=== PATIENT | male | born 1950 | race Caucasian/White ===

== ENCOUNTER 2017-08-02 14:06 | Inpatient (IN) | payer MEDICARE, MEDICAID ==
[~2017-08-02] VITALS: Ht 172.7 cm; Wt 72.6 kg
[~2017-08-02 14:06] MED LIST: ACETAMINOPHEN325 M1 ORAL; ASPIRIN81 MG ORAL; ATORVASTATIN CA40 MG ORAL; CLONIDINE0.1 MG ORAL; CYANOCOBAL1000 MCG/M IM; FERGON240 MG ORAL; GLUCOPHAGE500 MG ORAL; JANUVIA100 MG ORAL; LEVEMIR FL100 UNIT/1 SUBQ; LISINOPRIL10 MG ORAL; METOPROLOL TART50 MG ORAL; NKM; NOVOLOG100 UNITS1 SUBQ; NUEDEXTA 20-101 EAC1 PO; PROTONIX40 MG ORAL; RISPERDAL0.25 MG ORAL; ROZEREM8 MG ORAL; STARLIX120 MG ORAL
[2017-08-02 14:24] VITALS: BP 178/83
[2017-08-02 15:14] VITALS: BP 142/97
[2017-08-02] MEDS ORDERED: ASPIRIN EC81 MG ORAL (15:15)
[2017-08-02 16:02] LABS: BASOPHILS % (AUTO) 1.7 % (0.0-2.0); EOSINOPHILS % (AUTO) 2.6 % (0.0-3.0); HEMATOCRIT 30.2 % (42.0-52.0); HEMOGLOBIN 9.8 G/DL (14.2-18.0); LYMPHOCYTES % (AUTO) 20.4 % (20.0-45.0); MEAN CORPUSCULAR VOLUME 88 FL (80-99); MONOCYTES % (AUTO) 8.2 % (1.0-10.0); NEUTROPHILS % (AUTO) 67.2 % (45.0-75.0); PLATELET COUNT 562 K/UL (150-450); RED BLOOD COUNT 3.43 M/UL (4.70-6.10); RED CELL DISTRIBUTION WIDTH 12.2 % (11.6-14.8); WHITE BLOOD COUNT 15.1 K/UL (4.8-10.8)
[2017-08-02 16:25] LABS: ANION GAP 9 mmol/L (5-15); BLOOD UREA NITROGEN 17 mg/dL (7-18); CALCIUM 7.9 MG/DL (8.5-10.1); CARBON DIOXIDE 25 MMOL/L (21-32); CHLORIDE 107 MMOL/L (98-107); CREATININE 1.1 MG/DL (0.55-1.30); POTASSIUM 3.2 MMOL/L (3.5-5.1); SODIUM 141 MMOL/L (136-145)
[2017-08-02 16:38] LABS: ALANINE AMINOTRANSFERASE 11 U/L (12-78); ALBUMIN 1.8 G/DL (3.4-5.0); ALBUMIN/GLOBULIN RATIO 0.5 (1.0-2.7); ALKALINE PHOSPHATASE 75 U/L (46-116); ASPARTATE AMINO TRANSFERASE 8 U/L (15-37); BILIRUBIN,TOTAL 0.1 MG/DL (0.2-1.0); CKMB 0.8 NG/ML (0.0-3.6); CREATINE KINASE 90 U/L (26-308)
[2017-08-02] MEDS ORDERED: NS 1000ml 2,200 ML IVLG ONE (17:00)
--- NOTE | 2017-08-02 17:18 | Emergency Room Report ---
History of Present Illness General Chief Complaint: Generalized Weakness Source: Patient, Medical Record Present Illness HPI 67-year-old male presents ED for evaluation. Patient from longterm for evaluation. Nursing staff states that patient has been more confused with poor appetite for the last several days. Upon arrival patient states he feels okay. States he is not sure why he is here. States he feels fine. Denies any headaches or weakness. Denies chest pain or shortness of breath. Denies fevers chills. Son on phone states that patient has history of schizophrenia and often denies symptoms. son states the patient appeared more confused over the phone. Patient recent lab work done which showed elevated white cell count. Denies dysuria or hematuria. However aggravating relieving factors. Denies any other associated symptoms Allergies: Coded Allergies: No Known Allergies (Unverified , 08/15/15) Patient History Past Medical History: HTN, GERD, psych hx Past Surgical History: none Pertinent Family History: none Social History: Denies: smoking, alcohol use, drug use Immunizations: UTD Reviewed Nursing Documentation: PMH: Agreed, PSxH: Agreed Nursing Documentation-PMH Past Medical History: No History, Except For Hx Cardiac Problems: No - Hyperlipidemia, Anemia, Vit B12 deficiency anemia Hx Hypertension: Yes Hx Pacemaker: No Hx Asthma: No Hx COPD: No Hx Diabetes: Yes Hx Cancer: No - Pancreatic CA Hx Gastrointestinal Problems: Yes - GERD Hx Dialysis: No History Of Psychiatric Problem: Yes - Bipolar disorder, Schizoaffective disorder, major depression, anxiety Hx Neurological Problems: Yes - Difficulty in walking, generalized weakness Hx Cerebrovascular Accident: No Hx Seizures: No Review of Systems All Other Systems: negative except mentioned in HPI Physical Exam Vital Signs Date Time Temp Pulse Resp B/P (MAP) Pulse Ox O2 Delivery O2 Flow Rate FiO2 08/02/17 14:08 97.5 94 18 163/82 99 Room Air Sp02 EP Interpretation: reviewed, normal General Appearance: no apparent distress, alert, GCS 15, non-toxic Head: normocephalic Eyes: bilateral eye normal inspection, bilateral eye PERRL ENT: normal ENT inspection Neck: normal inspection Respiratory: chest non-tender, lungs clear, normal breath sounds, speaking full sentences Cardiovascular #1: regular rate, rhythm, no edema Gastrointestinal: normal bowel sounds, non tender, soft, non-distended, no guarding, no rebound Rectal: deferred Genitourinary: no CVA tenderness Musculoskeletal: normal inspection Neurologic: alert, responsive Psychiatric: anxious Skin: normal inspection Lymphatic: normal inspection Medical Decision Making Diagnostic Impression: Primary Impression: Episode of generalized weakness Additional Impressions: UTI (urinary tract infection) Qualified Codes: N39.0 - Urinary tract infection, site not specified Sepsis Qualified Codes: A41.9 - Sepsis, unspecified organism ER Course Hospital Course 67 yo M presents to ED for evaluation of weakness, poor appetite, confusion Differential diagnoses include: Pneumonia, UTI, sepsis, dehydration, FL/ unstable angina Clinical course Patient placed on stretcher. 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 After initial history and physical, I ordered labs, IV fluids, EKG, chest x-ray, blood cultures, UA. Patient initially refused all workup stating that he is fine and wants to be discharged. I spoke to PMD Dr. Castrejon; states that patient did have reasonable lab work that showed significant leukocytosis. Patient does have psychosis. I spoke to son. Present patient requires workup and he spoke to the patient on the phone. patient agreed to have workup Labs - electrolytes ok, noted leukocytosis, hb/hct stable, lactate 2.6, UA + bacteria, influenza negative CXR - no acute process Abx given. given 30cc/kg fluid bolus. Case discussed with Dr Castrejon and they agreed to admit patient to their service for further care and support I feel this is a highly complex case requiring extensive working including EKG/ Rhythm strip, Xray/CT/US, Blood/urine lab work, repeat exams while in ED, and administration of strong opiates/narcotics for pain control, admission to hospital or close patient follow up. Diagnosis - UTI, generalized weakness, sepsis Patient admitted to floor in serious condition Labs Test 08/02/17 14:47 08/02/17 15:41 08/02/17 16:57 08/02/17 17:11 Lactic Acid Level 2.60 mmol/L (0.66-2.22) 2.30 mmol/L (0.66-2.22) White Blood Count 15.1 K/UL (4.8-10.8) Red Blood Count 3.43 M/UL (4.70-6.10) Hemoglobin 9.8 G/DL (14.2-18.0) Hematocrit 30.2 % (42.0-52.0) Mean Corpuscular Volume 88 FL (80-99) Mean Corpuscular Hemoglobin 28.7 PG (27.0-31.0) Mean Corpuscular Hemoglobin Concent 32.6 G/DL (32.0-36.0) Red Cell Distribution Width 12.2 % (11.6-14.8) Platelet Count 562 K/UL (150-450) Mean Platelet Volume 6.7 FL (6.5-10.1) Neutrophils (%) (Auto) 67.2 % (45.0-75.0) Lymphocytes (%) (Auto) 20.4 % (20.0-45.0) Monocytes (%) (Auto) 8.2 % (1.0-10.0) Eosinophils (%) (Auto) 2.6 % (0.0-3.0) Basophils (%) (Auto) 1.7 % (0.0-2.0) Sodium Level 141 MMOL/L (136-145) Potassium Level 3.2 MMOL/L (3.5-5.1) Chloride Level 107 MMOL/L (98-107) Carbon Dioxide Level 25 MMOL/L (21-32) Anion Gap 9 mmol/L (5-15) Blood Urea Nitrogen 17 mg/dL (7-18) Creatinine 1.1 MG/DL (0.55-1.30) Estimat Glomerular Filtration Rate > 60 mL/min (>60) Glucose Level 182 MG/DL (74-106) Calcium Level 7.9 MG/DL (8.5-10.1) Total Bilirubin 0.1 MG/DL (0.2-1.0) Aspartate Amino Transf (AST/SGOT) 8 U/L (15-37) Alanine Aminotransferase (ALT/SGPT) 11 U/L (12-78) Alkaline Phosphatase 75 U/L (46-116) Total Creatine Kinase 90 U/L (26-308) Creatine Kinase MB 0.8 NG/ML (0.0-3.6) Creatine Kinase MB Relative Index 0.8 Troponin I 0.016 ng/mL (0.000-0.056) Pro-B-Type Natriuretic Peptide 407 pg/mL (0-125) Total Protein 5.4 G/DL (6.4-8.2) Albumin 1.8 G/DL (3.4-5.0) Globulin 3.6 g/dL Albumin/Globulin Ratio 0.5 (1.0-2.7) Urine Color Yellow Urine Appearance Slightly cloudy Urine pH 6 (4.5-8.0) Urine Specific [place] 1.015 (1.005-1.035) Urine Protein 4+ (NEGATIVE) Urine Glucose (UA) 3+ (NEGATIVE) Urine Ketones 1+ (NEGATIVE) Urine Occult Blood 1+ (NEGATIVE) Urine Nitrite Negative (NEGATIVE) Urine Bilirubin Negative (NEGATIVE) Urine Urobilinogen Normal MG/DL (0.0-1.0) Urine Leukocyte Esterase Negative (NEGATIVE) Urine RBC 5-10 /HPF (0 - 0) Urine WBC 2-4 /HPF (0 - 0) Urine Squamous Epithelial Cells None /LPF (NONE/OCC) Urine Amorphous Sediment Few /LPF (NONE) Urine Bacteria Many /HPF (NONE) Chest X-Ray Diagnostic Results Chest X-Ray Diagnostic Results : Chest X-Ray Ordered: Yes # of Views/Limited/Complete: 1 View Indication: Other - weakness EP Interpretation: Yes Interpretation: no consolidation, no effusion, no pneumothorax, no acute cardiopulmonary disease Impression: No acute disease Electronically Signed by: Electronically signed by Miky Multani MD Last Vital Signs Date Time Temp Pulse Resp B/P (MAP) Pulse Ox O2 Delivery O2 Flow Rate FiO2 08/02/17 15:14 77 8 142/97 99 Room Air 08/02/17 14:24 97.6 Status: improved Disposition: ADMITTED INPATIENT Condition: Serious Referrals: CARRIE CASTREJON (PCP) MIKY MULTANI M.D. Aug 02, 2017 17:18
[2017-08-02 17:26] LABS: APPEARANCE,URINE SLIGHTLY CLOUDY; BILIRUBIN, URINE NEGATIVE (NEGATIVE); GLUCOSE, URINE (UA) 3+ (NEGATIVE); KETONES,URINE 1+ (NEGATIVE); LEUKOCYTE ESTERASE ,URINE NEGATIVE (NEGATIVE); NITRITE,URINE NEGATIVE (NEGATIVE); PH,URINE 6 (4.5-8.0); PROTEIN,URINE 4+ (NEGATIVE); UROBILINOGEN,URINE NORMAL MG/DL (0.0-1.0)
[2017-08-02 17:27] LABS: COLOR,URINE YELLOW
[2017-08-02] MEDS ORDERED: cefTRIAXone 1 GM in NS 55 ML IVPB ONE (18:00)
[2017-08-02 18:36] VITALS: BP 153/76
[2017-08-02] MEDS ORDERED: METFORMIN HCL1000 M1 ORAL (19:50)
[2017-08-02] MEDS ORDERED: METFORMIN HCL500 M1 ORAL (19:50)
[2017-08-02] MEDS ORDERED: COLACE100 MG ORAL (19:50)
[2017-08-02] MEDS ORDERED: LEXAPRO5 MG ORAL (19:50)
[2017-08-02] MEDS ORDERED: DEPAKOTE250 MG PO (19:50)
[2017-08-02] MEDS ORDERED: MAGNESIUM400 M1 PO (19:55)
[2017-08-02] MEDS ORDERED: RISPERDAL0.25 MG ORAL (19:55)
[2017-08-02] MEDS ORDERED: VITAMIN B122500 MCG PO (19:55)
[2017-08-02 21:00] VITALS: BP 160/90
[2017-08-02] MEDS ORDERED: Miralax 17gm pkt ORAL PRN (23:30)
[2017-08-02] MEDS ORDERED: Norco 5mg/325mg tab ORAL PRN (23:30)
[2017-08-03] VITALS: BP 164/90
[2017-08-03] MEDS ORDERED: Bismuth Subsalicylate 30ml ORAL PRN (00:15)
[2017-08-03] MEDS ORDERED: Loperamide 2mg cap ORAL PRN (00:15)
[2017-08-03] MEDS ORDERED: traMADol 50mg tab ORAL PRN (00:15)
[2017-08-03] MEDS ORDERED: Norco 5mg/325mg tab ORAL PRN (05:30)
[2017-08-03] MEDS ORDERED: NovoLOG Insulin Flexpen SUBQ SCH (06:30)
[2017-08-03] MEDS: NovoLOG Insulin Flexpen SUBQ SCH ×3 (06:30→16:57)
[2017-08-03] MEDS ORDERED: metFORMIN 500mg tab ORAL SCH (06:30)
[2017-08-03 07:57] LABS: EOSINOPHILS % (AUTO) 3.1 % (0.0-3.0); HEMATOCRIT 34.4 % (42.0-52.0); HEMOGLOBIN 11.1 G/DL (14.2-18.0); MEAN CORPUSCULAR VOLUME 88 FL (80-99); MONOCYTES % (AUTO) 8.2 % (1.0-10.0); NEUTROPHILS % (AUTO) 61.7 % (45.0-75.0); PLATELET COUNT 626 K/UL (150-450); RED BLOOD COUNT 3.91 M/UL (4.70-6.10); WHITE BLOOD COUNT 14.3 K/UL (4.8-10.8)
[2017-08-03] MEDS: Docusate 100mg cap ORAL SCH ×4 (08:13→18:00)
[2017-08-03] MEDS: Metoprolol Tartrate 50mg tab ORAL SCH ×2 (08:13→20:28)
[2017-08-03] MEDS: Lisinopril 10mg tab ORAL SCH ×2 (08:13→16:54)
[2017-08-03] MEDS: Magnesium Oxide 400mg tab ORAL SCH ×3 (08:13→16:55)
[2017-08-03] MEDS: Aspirin Baby 81mg ORAL SCH (08:13)
[2017-08-03 08:20] LABS: ALANINE AMINOTRANSFERASE 10 U/L (12-78); ALBUMIN 2.1 G/DL (3.4-5.0); ALBUMIN/GLOBULIN RATIO 0.5 (1.0-2.7); ALKALINE PHOSPHATASE 82 U/L (46-116); ANION GAP 7 mmol/L (5-15); ASPARTATE AMINO TRANSFERASE 11 U/L (15-37); BILIRUBIN,TOTAL 0.3 MG/DL (0.2-1.0); BLOOD UREA NITROGEN 17 mg/dL (7-18); CALCIUM 9.1 MG/DL (8.5-10.1); CARBON DIOXIDE 27 MMOL/L (21-32); CHLORIDE 103 MMOL/L (98-107); CREATININE 1.2 MG/DL (0.55-1.30); POTASSIUM 3.7 MMOL/L (3.5-5.1); SODIUM 136 MMOL/L (136-145)
[2017-08-03 08:38] VITALS: BP 169/79
--- NOTE | 2017-08-03 08:52 | Diagnostic Imaging Report ---
. Indication: Altered mental status Technique: Portable frontal view of the chest Comparison: 08/16/2015 Findings: Heart size and mediastinal contours are stable. There is no definite focal airspace consolidation, pleural effusion or pneumothorax. There is an 8 mm rounded density with central lucency projecting over the right lung base. No acute osseous abnormality IMPRESSION: No radiographic evidence of acute cardiopulmonary disease. 8 mm rounded density with central lucency projecting over the right lung base. This was not seen on the previous exam. This may resent a partially calcified nodule or potentially external to the patient. Follow-up exam recommended to assess for stability of this finding. Alternatively, noncontrast CT of the chest can be obtained for further evaluation. Findings and imaging follow-up recommendations discussed with the patient's treating nurse on 4E at 8:45 AM on 08/03/2017
[2017-08-03] MEDS ORDERED: Levemir Flexpen SUBQ SCH (09:00)
[2017-08-03] MEDS: Nuedexta Capsule 20/10mg ORAL SCH ×2 (10:28→20:29)
[2017-08-03] MEDS: Escitalopram Oxalate 5mg tab ORAL SCH (10:28)
[2017-08-03] MEDS: Levemir Flexpen SUBQ SCH ×2 (10:33→20:41)
[2017-08-03] MEDS: metFORMIN 500mg tab ORAL SCH ×2 (11:39→16:24)
[2017-08-03 11:54] VITALS: BP 156/76
--- NOTE | 2017-08-03 14:04 | Geriatric Progress Note ---
Subjective Interval Events Patient sent from SNF for lethargy, poor oral intake. In ED found to have leukocytosis, apparent volume depletion, elevated lactate, possible UTI. Hydrated vigorously, covered with Ceftriaxone, admitted for sepsis, possible urinary source. Patient in bed slightly slowed from baseline, unable to give coherent description of recent sxs, but admits to "cold", sore throat. Voice is hoarse, slightly congested vs. baseline. Denies pain, SOB, dysuria. bowel sxs. Admits to weakness, lethargy. PMH: 1. Chronic psychosis, ? bipolar disorder with paranoia, agitation, labile affect. 2. Cognitive dysfunction, mixed, with cerebrovascular components, hx of uncontrolled diabetes, hx of B12 deficiency, element of pseudodementia. 3. 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 4. Diabetes mellitus, poorly controlled. 5. B12 deficiency on supplementation. 6. Gait disorder, multi-factorial. 7. Dyslipidemia. 8. HTN. 9. Prostatism. 10. DJD. Meds: Metformin 1000mg qam, 500mg qL, qD. Januvia 100mg daily. Levemir 24u q12. Novolog 8u ac tid. B12 1000mcg IM qmonth. Atorvastatin 40mg qhs. Flomax 0.4mg qhs. ASA 81mg qd. Metoprolol 50mg q12. Lisinopril 10mg bid. Depakote 250mg qd. Nuedexta 1cap bid. Risperdal 0.125mg qhs prn. Lexapro 5mg qd. MgOxide 400mg tid. Colace 100mg bid. MiraLax 17gm qd prn. [place] 5/325 q6 prn. Tramadol 50 q4 prn. Tylenol 325 q4 prn. Benadryl 25mg q6 prn. Loperamide 2mg q8 prn. PeptoBismol 30ml prn. Chest grossly clear, with upper airway congestion. Abd benign. Ext without edema. Moves all extremities. ? Viral syndrome with resulting volume depletion, exacerbation of DM, leading to elevated lactate. Continue hydration, Ceftriaxone pending C&S. Recheck CXR for ? RLL nodule. Dictated #[id number] Geriatric Geriatric Last 24 Hour Vital Signs Date Time Temp Pulse Resp B/P (MAP) Pulse Ox O2 Delivery O2 Flow Rate FiO2 08/03/17 11:54 98.2 71 20 156/76 95 08/03/17 08:38 98.7 91 20 169/79 95 08/03/17 08:13 164/90 08/03/17 08:13 86 164/90 08/03/17 00:00 98.2 86 21 164/90 95 08/02/17 21:00 98.3 82 22 160/90 100 08/02/17 19:48 97.6 79 16 153/76 99 Room Air 08/02/17 18:36 79 16 153/76 99 Room Air 08/02/17 15:14 77 8 142/97 99 Room Air 08/02/17 14:24 97.6 18 178/83 99 Room Air 08/02/17 14:08 97.5 94 18 163/82 99 Room Air Intake and Output 08/02/17 08/03/17 19:00 07:00 Intake Total 1000 ml 1985 ml Balance 1000 ml 1985 ml Intake Oral 0 ml 480 ml IV Total 1000 ml 1505 ml # Voids 1 # Bowel Movements 2 Laboratory Tests Test 08/02/17 14:47 08/02/17 15:41 08/02/17 16:57 08/02/17 17:11 Lactic Acid Level 2.60 mmol/L (0.66-2.22) H 2.30 mmol/L (0.66-2.22) H White Blood Count 15.1 K/UL (4.8-10.8) H Red Blood Count 3.43 M/UL (4.70-6.10) L Hemoglobin 9.8 G/DL (14.2-18.0) L Hematocrit 30.2 % (42.0-52.0) L Mean Corpuscular Volume 88 FL (80-99) Mean Corpuscular Hemoglobin 28.7 PG (27.0-31.0) Mean Corpuscular Hemoglobin Concent 32.6 G/DL (32.0-36.0) Red Cell Distribution Width 12.2 % (11.6-14.8) Platelet Count 562 K/UL (150-450) H Mean Platelet Volume 6.7 FL (6.5-10.1) Neutrophils (%) (Auto) 67.2 % (45.0-75.0) Lymphocytes (%) (Auto) 20.4 % (20.0-45.0) Monocytes (%) (Auto) 8.2 % (1.0-10.0) Eosinophils (%) (Auto) 2.6 % (0.0-3.0) Basophils (%) (Auto) 1.7 % (0.0-2.0) Sodium Level 141 MMOL/L (136-145) Potassium Level 3.2 MMOL/L (3.5-5.1) L Chloride Level 107 MMOL/L (98-107) Carbon Dioxide Level 25 MMOL/L (21-32) Anion Gap 9 mmol/L (5-15) Blood Urea Nitrogen 17 mg/dL (7-18) Creatinine 1.1 MG/DL (0.55-1.30) Estimat Glomerular Filtration Rate > 60 mL/min (>60) Glucose Level 182 MG/DL (74-106) H Calcium Level 7.9 MG/DL (8.5-10.1) L Total Bilirubin 0.1 MG/DL (0.2-1.0) L Aspartate Amino Transf (AST/SGOT) 8 U/L (15-37) L Alanine Aminotransferase (ALT/SGPT) 11 U/L (12-78) L Alkaline Phosphatase 75 U/L (46-116) Total Creatine Kinase 90 U/L (26-308) Creatine Kinase MB 0.8 NG/ML (0.0-3.6) Creatine Kinase MB Relative Index 0.8 Troponin I 0.016 ng/mL (0.000-0.056) Pro-B-Type Natriuretic Peptide 407 pg/mL (0-125) H Total Protein 5.4 G/DL (6.4-8.2) L Albumin 1.8 G/DL (3.4-5.0) L Globulin 3.6 g/dL Albumin/Globulin Ratio 0.5 (1.0-2.7) L Urine Color Yellow Urine Appearance Slightly cloudy Urine pH 6 (4.5-8.0) Urine Specific Telephone 1.015 (1.005-1.035) Urine Protein 4+ (NEGATIVE) H Urine Glucose (UA) 3+ (NEGATIVE) H Urine Ketones 1+ (NEGATIVE) H Urine Occult Blood 1+ (NEGATIVE) H Urine Nitrite Negative (NEGATIVE) Urine Bilirubin Negative (NEGATIVE) Urine Urobilinogen Normal MG/DL (0.0-1.0) Urine Leukocyte Esterase Negative (NEGATIVE) Urine RBC 5-10 /HPF (0 - 0) H Urine WBC 2-4 /HPF (0 - 0) Urine Squamous Epithelial Cells None /LPF (NONE/OCC) Urine Amorphous Sediment Few /LPF (NONE) H Urine Bacteria Many /HPF (NONE) H Test 08/03/17 07:00 White Blood Count 14.3 K/UL (4.8-10.8) H Red Blood Count 3.91 M/UL (4.70-6.10) L Hemoglobin 11.1 G/DL (14.2-18.0) L Hematocrit 34.4 % (42.0-52.0) L Mean Corpuscular Volume 88 FL (80-99) Mean Corpuscular Hemoglobin 28.3 PG (27.0-31.0) Mean Corpuscular Hemoglobin Concent 32.2 G/DL (32.0-36.0) Red Cell Distribution Width 12.0 % (11.6-14.8) Platelet Count 626 K/UL (150-450) H Mean Platelet Volume 6.7 FL (6.5-10.1) Neutrophils (%) (Auto) 61.7 % (45.0-75.0) Lymphocytes (%) (Auto) 25.0 % (20.0-45.0) Monocytes (%) (Auto) 8.2 % (1.0-10.0) Eosinophils (%) (Auto) 3.1 % (0.0-3.0) H Basophils (%) (Auto) 2.0 % (0.0-2.0) Sodium Level 136 MMOL/L (136-145) Potassium Level 3.7 MMOL/L (3.5-5.1) Chloride Level 103 MMOL/L (98-107) Carbon Dioxide Level 27 MMOL/L (21-32) Anion Gap 7 mmol/L (5-15) Blood Urea Nitrogen 17 mg/dL (7-18) Creatinine 1.2 MG/DL (0.55-1.30) Estimat Glomerular Filtration Rate > 60 mL/min (>60) Glucose Level 213 MG/DL (74-106) H Lactic Acid Level 0.90 mmol/L (0.66-2.22) Calcium Level 9.1 MG/DL (8.5-10.1) Magnesium Level 1.3 MG/DL (1.8-2.4) L Total Bilirubin 0.3 MG/DL (0.2-1.0) Aspartate Amino Transf (AST/SGOT) 11 U/L (15-37) L Alanine Aminotransferase (ALT/SGPT) 10 U/L (12-78) L Alkaline Phosphatase 82 U/L (46-116) Total Protein 6.0 G/DL (6.4-8.2) L Albumin 2.1 G/DL (3.4-5.0) L Globulin 3.9 g/dL Albumin/Globulin Ratio 0.5 (1.0-2.7) L Current Medications Medications (Trade) Dose Ordered Sig/Connor Route PRN Reason Start Time Stop Time Status Last Admin Dose Admin Acetaminophen (Tylenol) 325 mg Q4H PRN ORAL Mild Pain/Temp > 100.5 08/02/17 23:45 09/01/17 23:44 Acetaminophen/ Hydrocodone Bitart ([place] 5/325) 1 tab Q6H PRN ORAL SEVERE PAIN 7-10 08/03/17 05:30 08/10/17 05:29 Aspirin (ASA) 81 mg DAILY ORAL 08/03/17 09:00 09/02/17 08:59 08/03/17 08:13 Atorvastatin Calcium (Lipitor) 40 mg BEDTIME ORAL 08/03/17 21:00 09/02/17 20:59 Bismuth Subsalicylate (Pepto-Bismol) 30 ml Q3H PRN ORAL Diarrhea 08/03/17 00:15 09/02/17 00:14 Ceftriaxone Sodium 1 gm/ Dextrose 55 ml @ 110 mls/hr Q24H IVPB 08/03/17 17:00 08/10/17 16:59 Cyanocobalamin (Vitamin B12) 1,000 mcg QMONTH SUBQ 08/04/17 09:00 09/03/17 08:59 Dextromethorphan/ Quinidine (Nuedexta Capsule) 1 cap Q12HR ORAL 08/03/17 09:00 09/02/17 08:59 08/03/17 10:28 Dextrose (Dextrose 50%) STAT PRN IV Hypoglycemia 08/03/17 00:45 09/02/17 00:44 Diphenhydramine HCl (Benadryl) 25 mg Q6H PRN ORAL Itching 08/03/17 00:15 09/02/17 00:14 Divalproex Sodium (Depakote) 250 mg DAILY ORAL 08/03/17 09:00 09/02/17 08:59 08/03/17 08:14 Docusate Sodium (Colace) 100 mg TWICE A DAY ORAL 08/03/17 09:00 09/02/17 08:59 Escitalopram Oxalate (Lexapro) 5 mg DAILY ORAL 08/03/17 09:00 09/02/17 08:59 08/03/17 10:28 Insulin Aspart (NovoLOG) 8 units NOVOTIAC SUBQ 08/03/17 06:30 09/02/17 06:29 08/03/17 12:06 Insulin Detemir (Levemir) 24 units EVERY 12 HOURS SUBQ 08/03/17 09:00 09/02/17 08:59 08/03/17 10:33 Lisinopril (Zestril) 10 mg BID ORAL 08/03/17 09:00 09/02/17 08:59 08/03/17 08:13 Loperamide HCl (Imodium) 2 mg Q8H PRN ORAL Diarrhea 08/03/17 00:15 09/02/17 00:14 Magnesium Oxide (Mag-Ox 400mg) 400 mg THREE TIMES A DAY ORAL 08/03/17 09:00 09/02/17 08:59 08/03/17 13:32 Metformin HCl (Glucophage) 500 mg BIDLS ORAL 08/03/17 11:30 09/02/17 11:29 08/03/17 11:39 Metformin HCl (Glucophage) 1,000 mg BEFORE BREAKFAST ORAL 08/03/17 06:30 09/02/17 06:29 08/03/17 06:19 Metoprolol Tartrate (Lopressor) 50 mg Q12HR ORAL 08/03/17 09:00 09/02/17 08:59 08/03/17 08:13 Polyethylene Glycol (Miralax) 17 gm DAILY PRN ORAL Constipation 08/02/17 23:30 09/01/17 23:29 Risperidone (RisperDAL) 0.125 mg HSPRN PRN ORAL Agitation 08/03/17 00:30 09/02/17 00:29 Sitagliptin Phosphate (Januvia) 100 mg ACBREAKFAST ORAL 08/03/17 06:30 09/02/17 06:29 08/03/17 06:19 Sodium Chloride 1,000 ml @ 50 mls/hr Q20H IV 08/02/17 22:45 09/01/17 22:44 08/03/17 00:03 Tamsulosin HCl (Flomax) 0.4 mg BEDTIME ORAL 08/03/17 21:00 09/02/17 20:59 Tramadol HCl (Ultram) 50 mg Q4H PRN ORAL MODERATE PAIN 4-6 08/03/17 04:15 08/10/17 04:14 Height (Feet): 5 Height (Inches): 8.00 Weight (Pounds): 160 CARRIE CASTREJON Aug 03, 2017 14:04
[2017-08-03 15:58] VITALS: BP 150/65
[2017-08-03] MEDS: cefTRIAXone 1 GM in D5W 55 ML IVPB SCH (16:55)
[2017-08-03 20:26] VITALS: BP 176/81
[2017-08-03] MEDS: Atorvastatin 20mg tab ORAL SCH (20:28)
[2017-08-03] MEDS: Tamsulosin 0.4mg cap ORAL SCH (20:28)
[2017-08-03] MEDS: traMADol 50mg tab ORAL PRN (20:29)
[2017-08-04] VITALS: BP 135/71
[2017-08-04 04:00] VITALS: BP 159/76
[2017-08-04 05:34] LABS: BASOPHILS % (AUTO) 1.8 % (0.0-2.0); EOSINOPHILS % (AUTO) 5.8 % (0.0-3.0); HEMOGLOBIN 9.9 G/DL (14.2-18.0); LYMPHOCYTES % (AUTO) 25.8 % (20.0-45.0); MEAN CORPUSCULAR VOLUME 88 FL (80-99); MONOCYTES % (AUTO) 11.1 % (1.0-10.0); NEUTROPHILS % (AUTO) 55.5 % (45.0-75.0); PLATELET COUNT 587 K/UL (150-450); RED BLOOD COUNT 3.42 M/UL (4.70-6.10); RED CELL DISTRIBUTION WIDTH 11.9 % (11.6-14.8)
[2017-08-04 05:40] LABS: ANION GAP 8 mmol/L (5-15); BLOOD UREA NITROGEN 14 mg/dL (7-18); CALCIUM 9.2 MG/DL (8.5-10.1); CARBON DIOXIDE 27 MMOL/L (21-32); CHLORIDE 105 MMOL/L (98-107); CREATININE 1.3 MG/DL (0.55-1.30); POTASSIUM 3.5 MMOL/L (3.5-5.1); SODIUM 140 MMOL/L (136-145)
[2017-08-04] MEDS: metFORMIN 500mg tab ORAL SCH ×3 (06:34→16:58)
[2017-08-04] MEDS: NovoLOG Insulin Flexpen SUBQ SCH ×3 (06:37→16:50)
[2017-08-04 08:00] VITALS: BP 134/66
[2017-08-04] MEDS ORDERED: Vitamin B12 1000mcg/ml Inj SUBQ SCH (09:00)
[2017-08-04] MEDS: Aspirin Baby 81mg ORAL SCH (09:08)
[2017-08-04] MEDS: Docusate 100mg cap ORAL SCH ×2 (09:08→18:00)
[2017-08-04] MEDS: Magnesium Oxide 400mg tab ORAL SCH ×3 (09:08→18:20)
[2017-08-04] MEDS: Nuedexta Capsule 20/10mg ORAL SCH ×2 (09:08→20:36)
[2017-08-04] MEDS: Escitalopram Oxalate 5mg tab ORAL SCH (09:08)
[2017-08-04] MEDS: Lisinopril 10mg tab ORAL SCH ×2 (09:09→18:20)
[2017-08-04] MEDS: Metoprolol Tartrate 50mg tab ORAL SCH ×2 (09:09→20:36)
[2017-08-04] MEDS: Levemir Flexpen SUBQ SCH ×2 (09:32→20:45)
--- NOTE | 2017-08-04 11:26 | Diagnostic Imaging Report ---
Indication: Cough Technique: 2 views of the chest Comparison: 08/02/2017 Findings: Very limited lateral view, probably due to body habitus Right basilar density is no longer evident, suspect was artifactual. No definite acute infiltrates or effusions. Heart size upper limits of normal Impression: No acute process Previously demonstrated right basilar rounded opacity no longer evident, suspect artifactual
[2017-08-04 12:00] VITALS: BP 130/71
[2017-08-04 16:00] VITALS: BP 127/69
[2017-08-04] MEDS: cefTRIAXone 1 GM in D5W 55 ML IVPB SCH (18:20)
[2017-08-04 20:00] VITALS: BP 174/89
[2017-08-04] MEDS: Tamsulosin 0.4mg cap ORAL SCH (20:36)
[2017-08-04] MEDS: Atorvastatin 20mg tab ORAL SCH (20:36)
--- NOTE | 2017-08-04 20:59 | Geriatric Progress Note ---
Assessment/Plan Problems: (1) Delirium due to another medical condition (2) Altered mental status (3) Low vitamin B12 level (4) progressive cognitive loss, confusion, gait ataxia. (5) Diabetes mellitus out of control (6) Dementia, vascular (7) Chronic paranoid psychosis (8) HTN (hypertension) (9) Volume depletion Assessment/Plan Responding to hydration primarily. Leukocytosis persists but may be in part associated with neuroendocrine tumor, psychosis. Repeat CXR did not confirm ? RLL nodule. Urine and blood studies NG so far. Entire presentation may have reflect viral URI with lethargy, decreased intake in presence of DMOOC leading to significant volume depletion and delirium. Continue empirical ceftriaxone until final C&S available. Mobilize with P.T. Hope for d/c to SNF soon if patient remains stable. Discussed with: patient, hospital staff Subjective Interval Events Patient still slightly sleepy vs. baseline, but more alert than yesterday. ? element of hypervigilance during discussion. Patient eating well, denies c/o including SOB, GI sxs. Mobilized with P.T. Labs still with element of leukocytosis, but otherwise appearing fairly normal. Of note is that on current diabetic regimen, control is good vs. poor at SNF - element of compliance both patient and staff. Staff report no new issues. Constitutional: Denies: pain Respiratory: Denies: shortness of breath Cardiovascular: Denies: chest pain, palpitations Gastrointestinal/Abdominal: Denies: abdominal pain Genitourinary: Denies: dysuria Musculoskeletal: Denies: back pain Geriatric Geriatric Last 24 Hour Vital Signs Date Time Temp Pulse Resp B/P (MAP) Pulse Ox O2 Delivery O2 Flow Rate FiO2 08/04/17 20:36 68 174/89 08/04/17 20:00 97.4 68 21 174/89 96 08/04/17 18:20 127/69 08/04/17 16:00 98.1 94 19 127/69 97 08/04/17 12:00 96.7 68 18 130/71 95 08/04/17 09:09 134/66 08/04/17 09:09 77 134/66 08/04/17 08:00 97.7 77 20 134/66 94 08/04/17 04:00 97.3 65 20 159/76 96 08/04/17 00:00 97.6 74 20 135/71 96 Room Air 08/03/17 21:26 97.4 Intake and Output 08/03/17 08/04/17 19:00 07:00 Intake Total 1075 ml 820 ml Output Total 250 ml Balance 825 ml 820 ml Intake Oral 570 ml 220 ml IV Total 505 ml 600 ml Output Urine Total 250 ml # Voids 2 3 Laboratory Tests Test 08/04/17 04:30 White Blood Count 15.0 K/UL (4.8-10.8) H Red Blood Count 3.42 M/UL (4.70-6.10) L Hemoglobin 9.9 G/DL (14.2-18.0) L Hematocrit 30.0 % (42.0-52.0) L Mean Corpuscular Volume 88 FL (80-99) Mean Corpuscular Hemoglobin 28.9 PG (27.0-31.0) Mean Corpuscular Hemoglobin Concent 32.9 G/DL (32.0-36.0) Red Cell Distribution Width 11.9 % (11.6-14.8) Platelet Count 587 K/UL (150-450) H Mean Platelet Volume 7.0 FL (6.5-10.1) Neutrophils (%) (Auto) 55.5 % (45.0-75.0) Lymphocytes (%) (Auto) 25.8 % (20.0-45.0) Monocytes (%) (Auto) 11.1 % (1.0-10.0) H Eosinophils (%) (Auto) 5.8 % (0.0-3.0) H Basophils (%) (Auto) 1.8 % (0.0-2.0) Sodium Level 140 MMOL/L (136-145) Potassium Level 3.5 MMOL/L (3.5-5.1) Chloride Level 105 MMOL/L (98-107) Carbon Dioxide Level 27 MMOL/L (21-32) Anion Gap 8 mmol/L (5-15) Blood Urea Nitrogen 14 mg/dL (7-18) Creatinine 1.3 MG/DL (0.55-1.30) Estimat Glomerular Filtration Rate 55.1 mL/min (>60) Glucose Level 98 MG/DL (74-106) # Calcium Level 9.2 MG/DL (8.5-10.1) Magnesium Level 1.5 MG/DL (1.8-2.4) L Current Medications Medications (Trade) Dose Ordered Sig/Connor Route PRN Reason Start Time Stop Time Status Last Admin Dose Admin Acetaminophen (Tylenol) 325 mg Q4H PRN ORAL Mild Pain/Temp > 100.5 08/02/17 23:45 09/01/17 23:44 Acetaminophen/ Hydrocodone Bitart ([place] 5/325) 1 tab Q6H PRN ORAL SEVERE PAIN 7-10 08/03/17 05:30 08/10/17 05:29 Aspirin (ASA) 81 mg DAILY ORAL 08/03/17 09:00 09/02/17 08:59 08/04/17 09:08 Atorvastatin Calcium (Lipitor) 40 mg BEDTIME ORAL 08/03/17 21:00 09/02/17 20:59 08/04/17 20:36 Bismuth Subsalicylate (Pepto-Bismol) 30 ml Q3H PRN ORAL Diarrhea 08/03/17 00:15 09/02/17 00:14 Ceftriaxone Sodium 1 gm/ Dextrose 55 ml @ 110 mls/hr Q24H IVPB 08/03/17 17:00 08/10/17 16:59 08/04/17 18:20 Cyanocobalamin (Vitamin B12) 1,000 mcg QMONTH SUBQ 08/04/17 09:00 09/03/17 08:59 08/04/17 11:28 Dextromethorphan/ Quinidine (Nuedexta Capsule) 1 cap Q12HR ORAL 08/03/17 09:00 09/02/17 08:59 08/04/17 20:36 Dextrose (Dextrose 50%) STAT PRN IV Hypoglycemia 08/03/17 00:45 09/02/17 00:44 Diphenhydramine HCl (Benadryl) 25 mg Q6H PRN ORAL Itching 08/03/17 00:15 09/02/17 00:14 Divalproex Sodium (Depakote) 250 mg DAILY ORAL 08/03/17 09:00 09/02/17 08:59 08/04/17 09:08 Docusate Sodium (Colace) 100 mg TWICE A DAY ORAL 08/03/17 09:00 09/02/17 08:59 08/04/17 09:08 Escitalopram Oxalate (Lexapro) 5 mg DAILY ORAL 08/03/17 09:00 09/02/17 08:59 08/04/17 09:08 Insulin Aspart (NovoLOG) 8 units NOVOTIAC SUBQ 08/03/17 06:30 09/02/17 06:29 08/04/17 12:16 Insulin Detemir (Levemir) 24 units EVERY 12 HOURS SUBQ 08/03/17 09:00 09/02/17 08:59 08/04/17 20:45 Lisinopril (Zestril) 10 mg BID ORAL 08/03/17 09:00 09/02/17 08:59 08/04/17 18:20 Loperamide HCl (Imodium) 2 mg Q8H PRN ORAL Diarrhea 08/03/17 00:15 09/02/17 00:14 Magnesium Oxide (Mag-Ox 400mg) 400 mg THREE TIMES A DAY ORAL 08/03/17 09:00 09/02/17 08:59 08/04/17 18:20 Metformin HCl (Glucophage) 500 mg BIDLS ORAL 08/04/17 11:30 09/03/17 11:29 08/04/17 16:58 Metformin HCl (Glucophage) 1,000 mg BEFORE BREAKFAST ORAL 08/04/17 06:30 09/03/17 06:29 08/04/17 06:34 Metoprolol Tartrate (Lopressor) 50 mg Q12HR ORAL 08/03/17 09:00 09/02/17 08:59 08/04/17 20:36 Polyethylene Glycol (Miralax) 17 gm DAILY PRN ORAL Constipation 08/02/17 23:30 09/01/17 23:29 Risperidone (RisperDAL) 0.125 mg HSPRN PRN ORAL Agitation 08/03/17 00:30 09/02/17 00:29 Sitagliptin Phosphate (Januvia) 100 mg ACBREAKFAST ORAL 08/03/17 06:30 09/02/17 06:29 08/04/17 06:34 Sodium Chloride 1,000 ml @ 50 mls/hr Q20H IV 08/02/17 22:45 09/01/17 22:44 08/04/17 16:58 Tamsulosin HCl (Flomax) 0.4 mg BEDTIME ORAL 08/03/17 21:00 09/02/17 20:59 08/04/17 20:36 Tramadol HCl (Ultram) 50 mg Q4H PRN ORAL MODERATE PAIN 4-6 08/03/17 04:15 08/10/17 04:14 08/03/17 20:29 Height (Feet): 5 Height (Inches): 8.00 Weight (Pounds): 160 General Appearance: non-toxic, lethargic - mildly Head: normocephalic, atraumatic Eyes: bilateral anicteric ENT: normal voice Neck: full range of motion, no mass Respiratory: lungs clear Cardiovascular: regular rate, rhythm Gastrointestinal: normal bowel sounds, non tender, soft, no mass, no organomegaly, non-distended Musculoskeletal: no calf tenderness Edema: no edema noted Generalized Neurologic: no new focality CARRIE CASTREJON Aug 04, 2017 20:58
[2017-08-04] MEDS: traMADol 50mg tab ORAL PRN (22:49)
[2017-08-05] VITALS: BP 157/97
[2017-08-05 04:14] VITALS: BP 149/81
[2017-08-05] MEDS: metFORMIN 500mg tab ORAL SCH ×3 (07:03→17:02)
[2017-08-05] MEDS: NovoLOG Insulin Flexpen SUBQ SCH ×3 (07:04→16:50)
--- NOTE | 2017-08-05 07:30 | History and Physical Report ---
DATE OF ADMISSION: 08/02/2017 IDENTIFICATION: The patient is a 67-year-old gentleman who presented with lethargy and poor oral intake from [facility]. HISTORY OF PRESENT ILLNESS: The patient is a gentleman with severe psychiatric substrate and resultant poor self-care with complications of uncontrolled diabetes mellitus, B12 deficiency, and poor hygiene, who was found approximately a year and a half ago to have evidence of a pancreatic mass. He subsequently underwent distal pancreatic and splenic resection with finding of neuroendocrine malignancy with lymph node involvement. Although all visible tumor was resected, the patient was at high risk for recurrent disease, but given his psychiatric status and the patient's unwillingness to undergo further procedures, the patient and his family elected to defer any chemotherapy or radiation therapy. In the meantime, the patient has been a resident of [facility] where he received treatment for his functional deficits as well as stabilization of his medical problems, although his compliance and behavior at times have been somewhat difficult to manage. The patient most lately had poorly controlled diabetes mellitus despite attempts to utilize insulin and had had one or two urinary tract infections over the last year or so, but otherwise he was functioning relatively stable. Apparently over the last several days, the patient became significantly more lethargic with poor oral intake and he was sent by the [facility] to the emergency room at [facility]. In the emergency room, he was found to have a mildly elevated lactate, significant leukocytosis, apparent volume depletion, and possible urinary tract infection. He was hydrated vigorously with 2 liters of fluid, covered with ceftriaxone for possible urinary sepsis, and admitted for further evaluation and treatment. Currently, the patient is arousable but slightly slowed from baseline with delayed responses. He is unable to give a coherent description of his recent symptoms, but admits to a "cold" and sore throat. His voice is clearly hoarse and slightly congested versus baseline, otherwise the patient currently denies pain, shortness of breath, dysuria, or bowel symptoms. He does admit to weakness and lethargy. Details of his responses are somewhat suspect given the patient's underlying psychiatric and cognitive deficits. PAST MEDICAL HISTORY: 1. Chronic psychosis with possible bipolar disease complicated by paranoia, agitation, and labile affect requiring psychotropic control as well as use of Nuedexta. 2. Cognitive deficits due to vascular component, history of uncontrolled diabetes mellitus, and history of B12 deficiency as well as possible element of pseudodementia. 3. 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 4. Diabetes mellitus, poorly controlled at the [facility]. 5. B12 deficiency, on supplementation. 6. Gait disorder, multifactorial. 7. Dyslipidemia. 8. Hypertension. 9. Prostatism. 10. Degenerative joint disease. CURRENT MEDICATIONS: Include metformin 1000 mg q.a.m. and 500 mg q.lunch and q.dinner, Januvia 100 mg daily, Levemir 24 units q.12 hours, NovoLog 8 units before meals t.i.d., B12 1000 mcg IM monthly, atorvastatin 40 mg nightly, Flomax 0.4 mg nightly, aspirin 81 mg daily, metoprolol 50 mg q.12 hours, lisinopril 10 mg b.i.d., Depakote 250 mg daily, Nuedexta one capsule b.i.d., Risperdal 0.125 mg nightly p.r.n. severe anxiety, Lexapro 5 mg daily, magnesium oxide 400 mg t.i.d., Colace 100 mg b.i.d., MiraLAX 17 g daily p.r.n., [place] 5/325 q.6 hours p.r.n. severe pain, tramadol 50 mg q.4 hours p.r.n. moderate pain, Tylenol 325 mg q.4 hours p.r.n. mild pain, Benadryl 25 mg q.6 hours p.r.n. pruritus, loperamide 2 mg q.8 hours p.r.n. diarrhea, Pepto-Bismol 30 mL after each loose bowel movement up to 8 times a day. ALLERGIES: No known drug allergies. SOCIAL HISTORY: The patient apparently has exhibited psychiatric abnormalities including psychosis and paranoia for many years. He kept his youngest child out at school. When he was hospitalized approximately two years ago, his son had never been to school and simply been educated by the patient with what they called home schooling. However, the history was that the patient had previously run successful businesses so that his baseline cognitive function apparently was not demonstrably impaired. He had been to a licensed clinical social service director who practices psychotherapy in [facility]. He has a son and a daughter. His son is a businessman in the [employer] and his daughter is a manufacturing team member in [employer] at [employer]. She has now assumed care of the patient's youngest son during his medical diathesis. FAMILY HISTORY: Not grossly contributory. REVIEW OF SYSTEMS: The patient is only able to describe generalized symptoms at the present time. PHYSICAL EXAMINATION: VITAL SIGNS: Blood pressure was 156/76, heart rate 71 and regular, respiratory rate 20, temperature 98.2, and oxygen saturation 95% on room air. GENERAL: The patient is a well-developed gentleman with evidence of cognitive slowing beyond his baseline and the oropharyngeal congestion described above. HEENT: Normocephalic, atraumatic. The sclerae are anicteric. NECK: Reveals normal range of motion with no obvious masses. CHEST: Reveals grossly clear breath sounds. CARDIAC: Reveals regular rhythm without gallops, murmurs, or rubs appreciated. ABDOMEN: Normal bowel sounds. Soft and nontender without masses or organomegaly appreciated at the present time. There is no suprapubic tenderness or dullness appreciated. EXTREMITIES: Revealed no definite edema and no calf tenderness. NEUROLOGICAL: The patient is able to raise both arms and raise both legs off the bed. More detailed neurologic testing was not attempted because of the patient's lethargy and mental status. LABORATORY AND DIAGNOSTIC DATA: The patient's initial laboratory data was remarkable for lactate of 2.60, an a white count of 15.1 with hematocrit of 30.2%, MCV of 88, platelet count of 562,000. Sodium 141, potassium 3.2, chloride 107, bicarbonate 25, BUN 17, creatinine 1.1, glucose 182, calcium 7.9, total bilirubin 0.1, AST 8, ALT 11, and alkaline phosphatase 75. Total CPK 90, MB 0.8. Troponin 0.016. ProBNP 407. Total protein 5.4, albumin 1.8. Urinalysis shows 4+ protein, 3+ glucose, 1+ ketones, 1+ occult blood, negative leukocyte esterase, 5-10 rbc's, 2-4 wbc's, many bacteria. Initial chest x-ray appeared generally clear. There is a question of a circular small lesion in the right base which was possibly artifactual versus a new lesion not previously seen. Electrocardiogram showed sinus rhythm. IMPRESSION AND PLAN: The patient presents with an elevated lactate, elevated white count, lethargy, poor oral intake suggesting a septic episode. The source of sepsis is not clear at the present time. There are mild changes in urine but not particularly suggestive of infectious process. The patient's physical exam in terms of the abdominal or pulmonary source seems relatively limited and no other clear etiology is apparent. The patient does have his underlying neuroendocrine tumor although the laboratory values initially obtained do not suggest a metabolic disequilibrium that would account for his clinical presentation secondary to recurrent tumor nor does his physical exam particularly suggests evidence of recurrent tumor at the present time. The patient has had poorly controlled diabetes mellitus at the facility. Whether this is due to some inattention on the part of the [facility] staff with respect to his various insulin doses or whether this represents some noncompliance on the part of the patient who not only refuses therapy at times, but also will often eat food from other trays or food by family members. A possibility given the recent upper respiratory tract pandemic where major component was influenza A, is that the patient may have developed a viral syndrome which then triggered decreased control of his diabetes and resulting volume depletion leading to his lethargy and poor oral intake. In any event, given the various changes, the patient will be covered empirically with ceftriaxone for possible urinary source or any other occult source at the present time pending further laboratory results and evaluation. He has been hydrated vigorously in the emergency room and intravenous hydration will be continued at this time. The patient will be placed on his diabetic regimen and usual medications and mobilized as quickly as possible and depending on his response to therapy, we will determine whether the patient has an ongoing source of sepsis or whether this represents a metabolic decompensation with hypoperfusion of his major organs associated with poorly controlled diabetes possibly secondary to superimposed upper respiratory tract viral syndrome. Additional interventions will be considered after the patient's clinical picture becomes more clear. Milton Rodriguez M.D. DR: Manju JOB#: [id number] CC: RADHA
[2017-08-05 08:00] VITALS: BP 140/79
[2017-08-05] MEDS: Nuedexta Capsule 20/10mg ORAL SCH ×2 (08:32→21:37)
[2017-08-05] MEDS: Docusate 100mg cap ORAL SCH ×2 (08:32→18:33)
[2017-08-05] MEDS: Magnesium Oxide 400mg tab ORAL SCH ×3 (08:33→18:33)
[2017-08-05] MEDS: Aspirin Baby 81mg ORAL SCH (08:33)
[2017-08-05] MEDS: Metoprolol Tartrate 50mg tab ORAL SCH ×2 (08:34→21:38)
[2017-08-05] MEDS: Lisinopril 10mg tab ORAL SCH ×2 (08:34→18:33)
[2017-08-05] MEDS: Escitalopram Oxalate 5mg tab ORAL SCH (08:37)
[2017-08-05] MEDS: Levemir Flexpen SUBQ SCH ×2 (08:43→21:44)
[2017-08-05 10:25] LABS: BASOPHILS % (AUTO) 1.3 % (0.0-2.0); EOSINOPHILS % (AUTO) 6.3 % (0.0-3.0); HEMATOCRIT 31.1 % (42.0-52.0); LYMPHOCYTES % (AUTO) 21.9 % (20.0-45.0); MEAN CORPUSCULAR VOLUME 88 FL (80-99); MONOCYTES % (AUTO) 8.8 % (1.0-10.0); NEUTROPHILS % (AUTO) 61.7 % (45.0-75.0); PLATELET COUNT 630 K/UL (150-450); RED BLOOD COUNT 3.52 M/UL (4.70-6.10); RED CELL DISTRIBUTION WIDTH 12.1 % (11.6-14.8); WHITE BLOOD COUNT 14.4 K/UL (4.8-10.8)
[2017-08-05 10:36] LABS: ANION GAP 6 mmol/L (5-15); BLOOD UREA NITROGEN 18 mg/dL (7-18); CALCIUM 9.4 MG/DL (8.5-10.1); CARBON DIOXIDE 29 MMOL/L (21-32); CHLORIDE 104 MMOL/L (98-107); CREATININE 1.3 MG/DL (0.55-1.30); SODIUM 139 MMOL/L (136-145)
[2017-08-05 12:00] VITALS: BP 138/80
--- NOTE | 2017-08-05 17:07 | Geriatric Progress Note ---
Assessment/Plan Problems: (1) Delirium due to another medical condition (2) Altered mental status (3) Low vitamin B12 level (4) progressive cognitive loss, confusion, gait ataxia. (5) Diabetes mellitus out of control (6) Dementia, vascular (7) Chronic paranoid psychosis (8) HTN (hypertension) (9) Volume depletion (10) Viral upper respiratory infection Assessment/Plan Improved. Still some upper respiratory tract congestion. Will order brief course of HHN to improve clearance of secretions. Continue other tx, including mobilization. If wbc continues to trend downward hope for d/c in 1-2 days. Discussed with: patient, hospital staff Subjective Interval Events Patient reports feeling better. Some non-productive cough. Glucoses well controlled. Wbc minimally improved. Constitutional: Denies: pain Respiratory: Denies: shortness of breath Cardiovascular: Denies: chest pain Gastrointestinal/Abdominal: Denies: abdominal pain Genitourinary: Denies: dysuria Geriatric Geriatric Last 24 Hour Vital Signs Date Time Temp Pulse Resp B/P (MAP) Pulse Ox O2 Delivery O2 Flow Rate FiO2 08/05/17 12:00 98.0 69 20 138/80 97 08/05/17 08:34 140/79 08/05/17 08:34 66 140/79 08/05/17 08:00 97.1 66 20 140/79 98 08/05/17 04:14 97.3 64 20 149/81 97 Room Air 08/05/17 00:00 97.3 72 21 157/97 96 08/04/17 23:48 97.4 08/04/17 20:36 68 174/89 08/04/17 20:00 97.4 68 21 174/89 96 08/04/17 18:20 127/69 Intake and Output 08/04/17 08/05/17 19:00 07:00 Intake Total 690 ml 800 ml Output Total 200 ml Balance 690 ml 600 ml Intake Oral 240 ml 200 ml IV Total 450 ml 600 ml Output Urine Total 200 ml # Voids 1 3 Laboratory Tests Test 08/05/17 09:50 White Blood Count 14.4 K/UL (4.8-10.8) H Red Blood Count 3.52 M/UL (4.70-6.10) L Hemoglobin 10.0 G/DL (14.2-18.0) L Hematocrit 31.1 % (42.0-52.0) L Mean Corpuscular Volume 88 FL (80-99) Mean Corpuscular Hemoglobin 28.4 PG (27.0-31.0) Mean Corpuscular Hemoglobin Concent 32.1 G/DL (32.0-36.0) Red Cell Distribution Width 12.1 % (11.6-14.8) Platelet Count 630 K/UL (150-450) H Mean Platelet Volume 6.8 FL (6.5-10.1) Neutrophils (%) (Auto) 61.7 % (45.0-75.0) Lymphocytes (%) (Auto) 21.9 % (20.0-45.0) Monocytes (%) (Auto) 8.8 % (1.0-10.0) Eosinophils (%) (Auto) 6.3 % (0.0-3.0) H Basophils (%) (Auto) 1.3 % (0.0-2.0) Sodium Level 139 MMOL/L (136-145) Potassium Level 4.0 MMOL/L (3.5-5.1) Chloride Level 104 MMOL/L (98-107) Carbon Dioxide Level 29 MMOL/L (21-32) Anion Gap 6 mmol/L (5-15) Blood Urea Nitrogen 18 mg/dL (7-18) Creatinine 1.3 MG/DL (0.55-1.30) Estimat Glomerular Filtration Rate 55.1 mL/min (>60) Glucose Level 169 MG/DL (74-106) H Calcium Level 9.4 MG/DL (8.5-10.1) Magnesium Level 1.7 MG/DL (1.8-2.4) L Current Medications Medications (Trade) Dose Ordered Sig/Connor Route PRN Reason Start Time Stop Time Status Last Admin Dose Admin Acetaminophen (Tylenol) 325 mg Q4H PRN ORAL Mild Pain/Temp > 100.5 08/02/17 23:45 09/01/17 23:44 Acetaminophen/ Hydrocodone Bitart ([place] 5/325) 1 tab Q6H PRN ORAL SEVERE PAIN 7-10 08/03/17 05:30 08/10/17 05:29 Aspirin (ASA) 81 mg DAILY ORAL 08/03/17 09:00 09/02/17 08:59 08/05/17 08:33 Atorvastatin Calcium (Lipitor) 40 mg BEDTIME ORAL 08/03/17 21:00 09/02/17 20:59 08/04/17 20:36 Bismuth Subsalicylate (Pepto-Bismol) 30 ml Q3H PRN ORAL Diarrhea 08/03/17 00:15 09/02/17 00:14 Ceftriaxone Sodium 1 gm/ Dextrose 55 ml @ 110 mls/hr Q24H IVPB 08/03/17 17:00 08/10/17 16:59 08/04/17 18:20 Cyanocobalamin (Vitamin B12) 1,000 mcg QMONTH SUBQ 08/04/17 09:00 09/03/17 08:59 08/04/17 11:28 Dextromethorphan/ Quinidine (Nuedexta Capsule) 1 cap Q12HR ORAL 08/03/17 09:00 09/02/17 08:59 08/05/17 08:32 Dextrose (Dextrose 50%) STAT PRN IV Hypoglycemia 08/03/17 00:45 09/02/17 00:44 Diphenhydramine HCl (Benadryl) 25 mg Q6H PRN ORAL Itching 08/03/17 00:15 09/02/17 00:14 Divalproex Sodium (Depakote) 250 mg DAILY ORAL 08/03/17 09:00 09/02/17 08:59 08/05/17 08:32 Docusate Sodium (Colace) 100 mg TWICE A DAY ORAL 08/03/17 09:00 09/02/17 08:59 08/05/17 08:32 Escitalopram Oxalate (Lexapro) 5 mg DAILY ORAL 08/03/17 09:00 09/02/17 08:59 08/05/17 08:37 Insulin Aspart (NovoLOG) 8 units NOVOTIAC SUBQ 08/03/17 06:30 09/02/17 06:29 08/05/17 11:43 Insulin Detemir (Levemir) 24 units EVERY 12 HOURS SUBQ 08/03/17 09:00 09/02/17 08:59 08/05/17 08:43 Lisinopril (Zestril) 10 mg BID ORAL 08/03/17 09:00 09/02/17 08:59 08/05/17 08:34 Loperamide HCl (Imodium) 2 mg Q8H PRN ORAL Diarrhea 08/03/17 00:15 09/02/17 00:14 Magnesium Oxide (Mag-Ox 400mg) 400 mg THREE TIMES A DAY ORAL 08/03/17 09:00 09/02/17 08:59 08/05/17 13:10 Metformin HCl (Glucophage) 500 mg BIDLS ORAL 08/04/17 11:30 09/03/17 11:29 08/05/17 11:41 Metformin HCl (Glucophage) 1,000 mg BEFORE BREAKFAST ORAL 08/04/17 06:30 09/03/17 06:29 08/05/17 07:03 Metoprolol Tartrate (Lopressor) 50 mg Q12HR ORAL 08/03/17 09:00 09/02/17 08:59 08/05/17 08:34 Polyethylene Glycol (Miralax) 17 gm DAILY PRN ORAL Constipation 08/02/17 23:30 09/01/17 23:29 08/05/17 08:32 Risperidone (RisperDAL) 0.125 mg HSPRN PRN ORAL Agitation 08/03/17 00:30 09/02/17 00:29 08/05/17 00:29 Sitagliptin Phosphate (Januvia) 100 mg ACBREAKFAST ORAL 08/03/17 06:30 09/02/17 06:29 08/05/17 07:03 Sodium Chloride 1,000 ml @ 50 mls/hr Q20H IV 08/02/17 22:45 09/01/17 22:44 08/05/17 08:46 Tamsulosin HCl (Flomax) 0.4 mg BEDTIME ORAL 08/03/17 21:00 09/02/17 20:59 08/04/17 20:36 Tramadol HCl (Ultram) 50 mg Q4H PRN ORAL MODERATE PAIN 4-6 08/03/17 04:15 08/10/17 04:14 08/04/17 22:49 Height (Feet): 5 Height (Inches): 8.00 Weight (Pounds): 160 General Appearance: alert - minimally flat and slowed vs. baseline Head: normocephalic, atraumatic Eyes: bilateral anicteric ENT: normal voice Neck: full range of motion, no mass Respiratory: lungs clear - minimal upper airway congestion. Cardiovascular: regular rate, rhythm Gastrointestinal: normal bowel sounds, non tender, soft, no mass, no organomegaly Musculoskeletal: no calf tenderness Edema: no edema noted Generalized Neurologic: no new focality CARRIE CASTREJON Aug 05, 2017 17:07
[2017-08-05] MEDS: cefTRIAXone 1 GM in D5W 55 ML IVPB SCH (17:15)
--- NOTE | 2017-08-05 18:33 | Physician Query ---
PLEASE COMPLETE DOCUMENT BEFORE SIGNING Dear Dr. Moralez Date: 08/05/2017 Online Communications Manager/CDS Name: Bala DunhamMD____ Online Communications Manager / CDS Phone #_[phone]. [phone] ____ Exercise your independent professional judgment when responding to query. Question asked do not imply a particular answer is desired/expected. Clinical Documentation States: "Altered mental status" documented in Dr. Rodriguez's Progress Notes Clinical Findings Show: "The patient presents with an elevated lactate, elevated white count, lethargy, poor oral intake suggesting a septic episode" as per Dr. Rodriguez's History & Physical Please indicate the nature and chronicity of the condition below: [] Metabolic Encephalopathy [] Toxic Encephalopathy [x] Toxic - Metabolic Encephalopathy [] Progressive Encephalopathy [] Encephalopathy, Other [] Other: [] Not Applicable Severity [x] Acute [] Chronic [] Acute on Chronic [] Unable to determine Condition Present on Admission: [x] Yes [] No []Clinically Undeterminable Please also document in your Progress Notes and/or Discharge Summary and indicate if the condition was present on admission. Milton Rodriguez M.D. Date & Time [facility]
[2017-08-05 20:00] VITALS: BP 157/97
[2017-08-05] MEDS: Tamsulosin 0.4mg cap ORAL SCH (21:37)
[2017-08-05] MEDS: Atorvastatin 20mg tab ORAL SCH (21:38)
[2017-08-05] MEDS: Albuterol/Ipratropium 3ml neb HHN SCH (23:00)
[2017-08-06] VITALS: BP 168/92
[2017-08-06 04:00] VITALS: BP 147/82
[2017-08-06] MEDS: metFORMIN 500mg tab ORAL SCH ×3 (06:15→17:06)
[2017-08-06] MEDS: NovoLOG Insulin Flexpen SUBQ SCH ×3 (06:20→16:50)
[2017-08-06 07:16] LABS: BASOPHILS % (AUTO) 1.9 % (0.0-2.0); EOSINOPHILS % (AUTO) 6.3 % (0.0-3.0); HEMATOCRIT 29.4 % (42.0-52.0); HEMOGLOBIN 9.8 G/DL (14.2-18.0); LYMPHOCYTES % (AUTO) 26.8 % (20.0-45.0); MEAN CORPUSCULAR VOLUME 88 FL (80-99); MONOCYTES % (AUTO) 9.2 % (1.0-10.0); NEUTROPHILS % (AUTO) 55.8 % (45.0-75.0); PLATELET COUNT 623 K/UL (150-450); RED BLOOD COUNT 3.35 M/UL (4.70-6.10); RED CELL DISTRIBUTION WIDTH 12.1 % (11.6-14.8); WHITE BLOOD COUNT 14.4 K/UL (4.8-10.8)
[2017-08-06 07:23] LABS: ANION GAP 5 mmol/L (5-15); BLOOD UREA NITROGEN 18 mg/dL (7-18); CALCIUM 9.3 MG/DL (8.5-10.1); CARBON DIOXIDE 30 MMOL/L (21-32); CHLORIDE 104 MMOL/L (98-107); CREATININE 1.2 MG/DL (0.55-1.30); POTASSIUM 3.6 MMOL/L (3.5-5.1); SODIUM 139 MMOL/L (136-145)
[2017-08-06] MEDS: Albuterol/Ipratropium 3ml neb HHN SCH ×2 (07:27→15:12)
[2017-08-06 08:32] VITALS: BP 159/74
[2017-08-06] MEDS: Aspirin Baby 81mg ORAL SCH (08:42)
[2017-08-06] MEDS: Escitalopram Oxalate 5mg tab ORAL SCH (08:42)
[2017-08-06] MEDS: Metoprolol Tartrate 50mg tab ORAL SCH (08:43)
[2017-08-06] MEDS: Docusate 100mg cap ORAL SCH (08:43)
[2017-08-06] MEDS: Nuedexta Capsule 20/10mg ORAL SCH (08:46)
[2017-08-06] MEDS: Magnesium Oxide 400mg tab ORAL SCH ×2 (08:46→11:58)
[2017-08-06] MEDS: Lisinopril 10mg tab ORAL SCH ×2 (08:46→18:10)
[2017-08-06] MEDS: Levemir Flexpen SUBQ SCH (09:02)
[2017-08-06 11:34] VITALS: BP 164/83
--- NOTE | 2017-08-06 15:19 | Geriatric Progress Note ---
Assessment/Plan Problems: (1) Delirium due to another medical condition (2) Altered mental status (3) Low vitamin B12 level (4) progressive cognitive loss, confusion, gait ataxia. (5) Diabetes mellitus out of control (6) Dementia, vascular (7) Chronic paranoid psychosis (8) HTN (hypertension) (9) Volume depletion (10) Viral upper respiratory infection Assessment/Plan Appears back to baseline except for residual weakness, possible slight unmasking of baseline paranoid psychosis associated with acute illness. No evidence by C&S or clinical exam of persistent infectious process. Suspect MAYELA triggering DMOOC, anorexia, leading to dehydration, delirium on presentation. Improved with hydration, improved DM control. OK to return to SNF for rehab. D/c further antibiotics given lack of therapeutic target. Continue to mobilize. Dictated #[id number]. Discussed with: patient, hospital staff Subjective Interval Events Patient smiling on approach to bedside, "I am OK now that you are here." Staff reports patient calm with females, agitated with male staff at times. Earlier with elevated bp, one time dose of amlodipine ordered. Affect seems slightly inappropriate. Patient reports he is OK, wants to return to his facility. Denies discomfort, although accuracy of responses is questionable. Wbc still elevated, but given negative C&S, suspect primarily associated wtih residual humoral effects of neuroendocrine malignancy despite mass resection. Constitutional: Denies: pain Respiratory: Denies: cough, shortness of breath Cardiovascular: Denies: chest pain Gastrointestinal/Abdominal: Denies: abdominal pain Genitourinary: Denies: dysuria Geriatric Geriatric Last 24 Hour Vital Signs Date Time Temp Pulse Resp B/P (MAP) Pulse Ox O2 Delivery O2 Flow Rate FiO2 08/06/17 13:41 69 188/89 08/06/17 11:34 97.8 69 21 164/83 97 08/06/17 08:46 159/74 08/06/17 08:43 71 159/74 08/06/17 08:32 98.2 71 20 159/74 95 08/06/17 07:37 77 18 97 Room Air 21 08/06/17 07:27 73 18 94 Room Air 21 08/06/17 04:00 98.1 69 21 147/82 96 08/06/17 00:31 85 19 Room Air 21 08/06/17 00:00 98.2 64 21 168/92 96 08/05/17 21:38 72 155/91 08/05/17 20:00 99.2 69 21 157/97 96 08/05/17 18:33 139/83 Intake and Output 08/05/17 08/06/17 19:00 07:00 Intake Total 1280 ml 500 ml Balance 1280 ml 500 ml Intake Oral 780 ml IV Total 500 ml 500 ml # Voids 9 4 # Bowel Movements 1 Laboratory Tests Test 08/06/17 04:25 08/06/17 04:28 Sodium Level 139 MMOL/L (136-145) Potassium Level 3.6 MMOL/L (3.5-5.1) Chloride Level 104 MMOL/L (98-107) Carbon Dioxide Level 30 MMOL/L (21-32) Anion Gap 5 mmol/L (5-15) Blood Urea Nitrogen 18 mg/dL (7-18) Creatinine 1.2 MG/DL (0.55-1.30) Estimat Glomerular Filtration Rate > 60 mL/min (>60) Glucose Level 108 MG/DL (74-106) H Calcium Level 9.3 MG/DL (8.5-10.1) White Blood Count 14.4 K/UL (4.8-10.8) H Red Blood Count 3.35 M/UL (4.70-6.10) L Hemoglobin 9.8 G/DL (14.2-18.0) L Hematocrit 29.4 % (42.0-52.0) L Mean Corpuscular Volume 88 FL (80-99) Mean Corpuscular Hemoglobin 29.2 PG (27.0-31.0) Mean Corpuscular Hemoglobin Concent 33.2 G/DL (32.0-36.0) Red Cell Distribution Width 12.1 % (11.6-14.8) Platelet Count 623 K/UL (150-450) H Mean Platelet Volume 6.8 FL (6.5-10.1) Neutrophils (%) (Auto) 55.8 % (45.0-75.0) Lymphocytes (%) (Auto) 26.8 % (20.0-45.0) Monocytes (%) (Auto) 9.2 % (1.0-10.0) Eosinophils (%) (Auto) 6.3 % (0.0-3.0) H Basophils (%) (Auto) 1.9 % (0.0-2.0) Current Medications Medications (Trade) Dose Ordered Sig/Connor Route PRN Reason Start Time Stop Time Status Last Admin Dose Admin Acetaminophen (Tylenol) 325 mg Q4H PRN ORAL Mild Pain/Temp > 100.5 08/02/17 23:45 09/01/17 23:44 Acetaminophen/ Hydrocodone Bitart ([place] 5/325) 1 tab Q6H PRN ORAL SEVERE PAIN 7-10 08/03/17 05:30 08/10/17 05:29 Albuterol/ Ipratropium (Albuterol/ Ipratropium) 3 ml Q8HRT HHN 08/05/17 23:00 08/10/17 22:59 08/06/17 07:27 Aspirin (ASA) 81 mg DAILY ORAL 08/03/17 09:00 09/02/17 08:59 08/06/17 08:42 Atorvastatin Calcium (Lipitor) 40 mg BEDTIME ORAL 08/03/17 21:00 09/02/17 20:59 08/05/17 21:38 Bismuth Subsalicylate (Pepto-Bismol) 30 ml Q3H PRN ORAL Diarrhea 08/03/17 00:15 09/02/17 00:14 Ceftriaxone Sodium 1 gm/ Sodium Chloride 55 ml @ 110 mls/hr Q24H IVPB 08/06/17 17:00 08/13/17 16:59 Cyanocobalamin (Vitamin B12) 1,000 mcg QMONTH SUBQ 08/04/17 09:00 09/03/17 08:59 08/04/17 11:28 Dextromethorphan/ Quinidine (Nuedexta Capsule) 1 cap Q12HR ORAL 08/03/17 09:00 09/02/17 08:59 08/06/17 08:46 Dextrose (Dextrose 50%) STAT PRN IV Hypoglycemia 08/03/17 00:45 09/02/17 00:44 Diphenhydramine HCl (Benadryl) 25 mg Q6H PRN ORAL Itching 08/03/17 00:15 09/02/17 00:14 Divalproex Sodium (Depakote) 250 mg DAILY ORAL 08/03/17 09:00 09/02/17 08:59 08/06/17 08:43 Docusate Sodium (Colace) 100 mg TWICE A DAY ORAL 08/03/17 09:00 09/02/17 08:59 08/06/17 08:43 Escitalopram Oxalate (Lexapro) 5 mg DAILY ORAL 08/03/17 09:00 09/02/17 08:59 08/06/17 08:42 Insulin Aspart (NovoLOG) 8 units NOVOTIAC SUBQ 08/03/17 06:30 09/02/17 06:29 08/06/17 12:02 Insulin Detemir (Levemir) 24 units EVERY 12 HOURS SUBQ 08/03/17 09:00 09/02/17 08:59 08/06/17 09:02 Lisinopril (Zestril) 10 mg BID ORAL 08/03/17 09:00 09/02/17 08:59 08/06/17 08:46 Loperamide HCl (Imodium) 2 mg Q8H PRN ORAL Diarrhea 08/03/17 00:15 09/02/17 00:14 Magnesium Oxide (Mag-Ox 400mg) 400 mg THREE TIMES A DAY ORAL 08/03/17 09:00 09/02/17 08:59 08/06/17 11:58 Metformin HCl (Glucophage) 500 mg BIDLS ORAL 08/04/17 11:30 09/03/17 11:29 08/06/17 11:58 Metformin HCl (Glucophage) 1,000 mg BEFORE BREAKFAST ORAL 08/04/17 06:30 09/03/17 06:29 08/06/17 06:15 Metoprolol Tartrate (Lopressor) 50 mg Q12HR ORAL 08/03/17 09:00 09/02/17 08:59 08/06/17 08:43 Polyethylene Glycol (Miralax) 17 gm DAILY PRN ORAL Constipation 08/02/17 23:30 09/01/17 23:29 08/05/17 08:32 Risperidone (RisperDAL) 0.125 mg HSPRN PRN ORAL Agitation 08/03/17 00:30 09/02/17 00:29 08/05/17 00:29 Sitagliptin Phosphate (Januvia) 100 mg ACBREAKFAST ORAL 08/03/17 06:30 09/02/17 06:29 08/06/17 06:15 Sodium Chloride 1,000 ml @ 50 mls/hr Q20H IV 08/02/17 22:45 09/01/17 22:44 08/06/17 06:54 Tamsulosin HCl (Flomax) 0.4 mg BEDTIME ORAL 08/03/17 21:00 09/02/17 20:59 08/05/17 21:37 Tramadol HCl (Ultram) 50 mg Q4H PRN ORAL MODERATE PAIN 4-6 08/03/17 04:15 08/10/17 04:14 08/04/17 22:49 Height (Feet): 5 Height (Inches): 8.00 Weight (Pounds): 160 General Appearance: alert - affect slightly inappropriate. Head: normocephalic, atraumatic Eyes: bilateral anicteric ENT: normal voice Neck: full range of motion, no mass Respiratory: lungs clear - breath sounds slightly coarse Cardiovascular: regular rate, rhythm Gastrointestinal: normal bowel sounds, non tender, soft, no mass, no organomegaly Musculoskeletal: no calf tenderness Edema: no edema noted Generalized Neurologic: no new focality - moves all extremities without difficulty CARRIE CASTREJON Aug 06, 2017 15:19
[2017-08-06] MEDS ORDERED: ACETAMINOPHEN325 M1 ORAL (15:26)
[2017-08-06] MEDS ORDERED: LIPITOR20 MG ORAL (15:26)
[2017-08-06] MEDS ORDERED: TRAMADOL HCL50 MG ORAL (15:26)
[2017-08-06 16:17] VITALS: BP 157/77
[2017-08-06] MEDS ORDERED: cefTRIAXone 1 GM in NS 55 ML IVPB SCH (17:00)
[2017-08-06 18:10] VITALS: BP 157/77
[2017-08-06] MEDS ORDERED: Tubing IV Secondary IV ONE (19:09)
--- NOTE | 2017-08-08 12:55 | Discharge Summary ---
DATE OF ADMISSION: 08/02/2017 DATE OF DISCHARGE: 08/06/2017 DISCHARGE DIAGNOSES: 1. Acute lethargy. 2. Anorexia and delirium thought to be secondary to metabolic derangement from influenza like illness and uncontrolled diabetes mellitus. 3. Chronic psychosis with possible bipolar disease complicated by paranoia, agitation, and labile affect requiring psychotropic control as well as uses Nuedexta. 4. Cognitive deficits due to cerebrovascular disease, history of uncontrolled diabetes mellitus and history of B12 deficiency as well as possible element of pseudodementia associated with psychiatric substrate. 5. 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 6. Diabetes mellitus, poorly controlled. 7. B12 deficiency. 8. Multifactorial gait disorder. 9. Dyslipidemia. 10. Hypertension. 11. Prostatism. 12. Degenerative joint disease. HISTORY OF PRESENT ILLNESS: The patient presented with lethargy, anorexia, and increased confusion. Details of history and physical examination are per the dictation of 08/03/2017. HOSPITAL COURSE: The patient was initially covered with antibiotics for possible urinary tract infection as well as possible pneumonitis however cultures failed to reveal definitive infection in either site. The patient did have chest congestion and symptoms consistent with an influenza like illness. His influenza rapid swab was negative for influenza A or B. The patient was also significantly volume depleted and received two liters of fluid in the emergency room. With this treatment it became likely that the patient had experienced an influenza like illness, likely viral in etiology, which further exacerbated his poorly controlled diabetes mellitus and led to volume depletion as well as altered mental status and decreased oral intake. The patient had elevated lactate on admission, as well as an elevated white count. Lactate improved with hydration. The white count remained somewhat elevated and this has been characteristic of the patient's course and the residual elevation seems likely to be due to humoral secretions of the neuroendocrine tumor which persist. At this point, the patient is alert, reports he is feeling better and has mental status generally consistent with his baseline although he seems perhaps a little bit less guarded and possibly minimally more psychotic than his usual baseline, this is likely a loss of control associated with the acute illness but should improve as the patient physical status improves. Finally the patient remains quite weak and therefore should be able to return to [facility] and he is able to undergo rehabilitation to regain his strength. Of note is the fact the patient's diabetes has been considerably better controlled in the hospital on same doses of medication as at the facility. There was a suspicion that the patient has been noncompliant with his diet at facility, taking food off of other patient's tray or perhaps he is missing some his doses of insulin due to the logistics of the care at the [facility] facility. In any event, at the time of discharge, the patient's medications will essentially remain the same as on admission. The patient will be followed up at the [facility]. [facility] Rodriguez M.D. DR: Manju JOB#: [id number] CC: RADHA
== END 2017-08-06 19:10 | DRG 152 ==
LOC: EDBD 14:06 → EMR 14:45 → 4E 17:31 → EDBEDREQ 17:48 → 4E 08-04 23:09
DX: J11.1 Influenza due to unidentified influenza virus with other respiratory manifestations (principal); G92 Toxic encephalopathy; F01.51 Vascular dementia, unspecified severity, with behavioral disturbance; E11.65 Type 2 diabetes mellitus with hyperglycemia; F05 Delirium due to known physiological condition; N39.0 Urinary tract infection, site not specified; Z85.07 Personal history of malignant neoplasm of pancreas; F31.9 Bipolar disorder, unspecified; E78.5 Hyperlipidemia, unspecified; F29 Unspecified psychosis not due to a substance or known physiological condition; E53.8 Deficiency of other specified B group vitamins; R26.9 Unspecified abnormalities of gait and mobility; I10 Essential (primary) hypertension; N40.0 Benign prostatic hyperplasia without lower urinary tract symptoms; M19.90 Unspecified osteoarthritis, unspecified site; F22 Delusional disorders; R53.83 Other fatigue; Z85.858 Personal history of malignant neoplasm of other endocrine glands; Z79.4 Long term (current) use of insulin; Z91.11 Patient's noncompliance with dietary regimen
CPT/HCPCS: 36415; 71045; 71046; 80048; 80053; 81003; 82150; 82550; 82553; 82962; 83605; 83735; 83880; 84484; 85025; 86710; 87040; 87081; 87086; 87324; 94640; 94664; 99285; J1815; J7620; S5561

== ENCOUNTER 2018-07-14 12:33 | Inpatient (IN) | payer MEDICARE, MEDICAID ==
[~2018-07-14] VITALS: Ht 167.6 cm; Wt 83.3 kg
[~2018-07-14 12:33] MED LIST changes: +ASPIRIN EC81 MG ORAL; +COLACE100 MG ORAL; +DEPAKOTE250 MG PO; +LEXAPRO5 MG ORAL; +LIPITOR20 MG ORAL; +MAGNESIUM400 M1 PO; +METFORMIN HCL1000 M1 ORAL; +METFORMIN HCL500 M1 ORAL; +TRAMADOL HCL50 MG ORAL; +VITAMIN B122500 MCG PO
[2018-07-14 12:40] VITALS: BP 158/85
[2018-07-14] MEDS ORDERED: LOVENOX40 MG/0.4 SUBQ (13:07)
[2018-07-14] MEDS ORDERED: HYDRALAZINE HCL25 M2 PO (13:07)
[2018-07-14] MEDS ORDERED: Cefepime HCl 1 GM in NS 55 ML IV SCH (13:15)
[2018-07-14] MEDS ORDERED: Vancomycin 1 GM in NS 275 ML IV ONE (13:15)
[2018-07-14 13:33] LABS: HEMATOCRIT 35.2 % (42.0-52.0); HEMOGLOBIN 11.6 G/DL (14.2-18.0); MEAN CORPUSCULAR VOLUME 85 FL (80-99); PLATELET COUNT 862 K/UL (150-450); RED BLOOD COUNT 4.13 M/UL (4.70-6.10); RED CELL DISTRIBUTION WIDTH 13.1 % (11.6-14.8); WHITE BLOOD COUNT 15.7 K/UL (4.8-10.8)
--- NOTE | 2018-07-14 13:34 | Diagnostic Imaging Report ---
Indication: Dyspnea Comparison: 08/04/2017 A single view chest radiograph was obtained. Findings: Cardiomediastinal appearance is within normal limits for age. The lungs are clear. Pulmonary vascularity is appropriate. The diaphragmatic contour is smooth and costophrenic angles are sharp. No pleural effusions are identified. The bones are unremarkable. Impression: No acute findings
[2018-07-14 13:50] LABS: ANION GAP 7 mmol/L (5-15); BLOOD UREA NITROGEN 18 mg/dL (7-18); CALCIUM 10.4 MG/DL (8.5-10.1); CARBON DIOXIDE 28 MMOL/L (21-32); CHLORIDE 101 MMOL/L (98-107); CREATININE 1.8 MG/DL (0.55-1.30); POTASSIUM 3.8 MMOL/L (3.5-5.1); SODIUM 136 MMOL/L (136-145)
[2018-07-14 13:57] LABS: APPEARANCE,URINE CLEAR; BILIRUBIN, URINE NEGATIVE (NEGATIVE); COLOR,URINE PALE YELLOW; GLUCOSE, URINE (UA) 4+ (NEGATIVE); KETONES,URINE NEGATIVE (NEGATIVE); LEUKOCYTE ESTERASE ,URINE NEGATIVE (NEGATIVE); NITRITE,URINE NEGATIVE (NEGATIVE); PH,URINE 7 (4.5-8.0); PROTEIN,URINE 4+ (NEGATIVE); UROBILINOGEN,URINE NORMAL MG/DL (0.0-1.0)
[2018-07-14 14:04] LABS: ALANINE AMINOTRANSFERASE 22 U/L (12-78); ALBUMIN 2.3 G/DL (3.4-5.0); ALBUMIN/GLOBULIN RATIO 0.5 (1.0-2.7); ALKALINE PHOSPHATASE 107 U/L (46-116); ASPARTATE AMINO TRANSFERASE 21 U/L (15-37); BILIRUBIN,TOTAL 0.2 MG/DL (0.2-1.0); CKMB 1.4 NG/ML (0.0-3.6); CREATINE KINASE 98 U/L (26-308)
[2018-07-14 14:34] VITALS: BP 167/86
--- NOTE | 2018-07-14 16:07 | Emergency Room Report ---
History of Present Illness General Chief Complaint: Abnormal Labs Source: Medical Record, EMS, PMD Present Illness HPI This patient is brought in by EMS from a [place] [facility] facility. The patient' s son called ahead and states that he is only to be admitted to [facility]. The patient has a history of CVA with hemiplegia and cephalopathy. He also has a history of an elevated white blood cell count of uncertain etiology. He presents from the [place] [facility] for concern of an elevated white blood cell count. He has no specific complaints. He is able to answer yes or no questions. Allergies: Coded Allergies: No Known Allergies (Unverified , 07/14/18) Patient History Past Medical History: see triage record, DM, HTN, GERD, CVA/TIA, psych hx, renal disease Social History: Denies: smoking, alcohol use, drug use Reviewed Nursing Documentation: PMH: Agreed; PSxH: Agreed Nursing Documentation-PMH Past Medical History: No History, Except For Hx Cardiac Problems: No - Hyperlipidemia, Anemia, Vit B12 deficiency anemia Hx Hypertension: Yes Hx Pacemaker: No Hx Asthma: No Hx COPD: No Hx Cancer: No - Pancreatic CA Hx Gastrointestinal Problems: Yes - GERD Hx Dialysis: No Hx Neurological Problems: Yes - Difficulty in walking, generalized weakness Hx Cerebrovascular Accident: No Hx Dementia: Yes Hx Seizures: No Review of Systems All Other Systems: negative except mentioned in HPI Physical Exam Vital Signs Date Time Temp Pulse Resp B/P (MAP) Pulse Ox O2 Delivery O2 Flow Rate FiO2 07/14/18 12:38 97.9 77 18 125/79 96 Room Air Sp02 EP Interpretation: reviewed, normal General Appearance: no apparent distress, alert, GCS 15, non-toxic Head: normocephalic, atraumatic Eyes: bilateral eye normal inspection, bilateral eye PERRL ENT: hearing grossly normal, normal pharynx, no angioedema, normal voice Neck: full range of motion, supple/symm/no masses Respiratory: chest non-tender, lungs clear, normal breath sounds, no respiratory distress, no retraction, no accessory muscle use, speaking full sentences Cardiovascular #1: regular rate, rhythm, no edema Gastrointestinal: normal bowel sounds, non tender, soft, non-distended, no guarding, no rebound Rectal: deferred Musculoskeletal: back normal, gait/station normal, normal range of motion, non- tender Neurologic: alert, responsive, motor weakness - Hemiplegia Psychiatric: judgement/insight normal, memory normal, mood/affect normal, no suicidal/homicidal ideation Skin: normal color, no rash, warm/dry, well hydrated Medical Decision Making Diagnostic Impression: Primary Impression: ARTUR (acute kidney injury) Additional Impression: Leukocytosis ER Course This patient has leukocytosis of uncertain etiology. He also has acute kidney injury. Overall, this patient is nontoxic. However, it is very difficult to assess this patient because of his inability to fully communicate. He is only able to answer yes or no questions. He is admitted for further monitoring of his kidney disease and further evaluation of his leukocytosis. Laboratory Tests Test 07/14/18 13:20 07/14/18 13:30 White Blood Count 15.7 K/UL (4.8-10.8) H Red Blood Count 4.13 M/UL (4.70-6.10) L Hemoglobin 11.6 G/DL (14.2-18.0) L Hematocrit 35.2 % (42.0-52.0) L Mean Corpuscular Volume 85 FL (80-99) Mean Corpuscular Hemoglobin 28.2 PG (27.0-31.0) Mean Corpuscular Hemoglobin Concent 33.1 G/DL (32.0-36.0) Red Cell Distribution Width 13.1 % (11.6-14.8) Platelet Count 862 K/UL (150-450) H Mean Platelet Volume 6.5 FL (6.5-10.1) Neutrophils (%) (Auto) % (45.0-75.0) Lymphocytes (%) (Auto) % (20.0-45.0) Monocytes (%) (Auto) % (1.0-10.0) Eosinophils (%) (Auto) % (0.0-3.0) Basophils (%) (Auto) % (0.0-2.0) Differential Total Cells Counted 100 Neutrophils % (Manual) 53 % (45-75) Lymphocytes % (Manual) 35 % (20-45) Monocytes % (Manual) 5 % (1-10) Eosinophils % (Manual) 6 % (0-3) H Basophils % (Manual) 1 % (0-2) Band Neutrophils 0 % (0-8) Platelet Estimate Increased H Platelet Morphology Normal Hypochromasia 1+ Sodium Level 136 MMOL/L (136-145) Potassium Level 3.8 MMOL/L (3.5-5.1) Chloride Level 101 MMOL/L (98-107) Carbon Dioxide Level 28 MMOL/L (21-32) Anion Gap 7 mmol/L (5-15) Blood Urea Nitrogen 18 mg/dL (7-18) Creatinine 1.8 MG/DL (0.55-1.30) H Estimate Glomerular Filtration Rate 37.7 mL/min (>60) Glucose Level 202 MG/DL (74-106) H Lactic Acid Level 1.40 mmol/L (0.4-2.0) Calcium Level 10.4 MG/DL (8.5-10.1) H Total Bilirubin 0.2 MG/DL (0.2-1.0) Aspartate Amino Transferase (AST) 21 U/L (15-37) Alanine Aminotransferase (ALT) 22 U/L (12-78) Alkaline Phosphatase 107 U/L (46-116) Total Creatine Kinase 98 U/L (26-308) Creatine Kinase MB 1.4 NG/ML (0.0-3.6) Creatine Kinase MB Relative Index 1.4 Troponin I 0.005 ng/mL (0.000-0.056) Total Protein 7.2 G/DL (6.4-8.2) Albumin 2.3 G/DL (3.4-5.0) L Globulin 4.9 g/dL Albumin/Globulin Ratio 0.5 (1.0-2.7) L Urine Color Pale yellow Urine Appearance Clear Urine pH 7 (4.5-8.0) Urine Specific [place] 1.010 (1.005-1.035) Urine Protein 4+ (NEGATIVE) H Urine Glucose (UA) 4+ (NEGATIVE) H Urine Ketones Negative (NEGATIVE) Urine Blood 1+ (NEGATIVE) H Urine Nitrite Negative (NEGATIVE) Urine Bilirubin Negative (NEGATIVE) Urine Urobilinogen Normal MG/DL (0.0-1.0) Urine Leukocyte Esterase Negative (NEGATIVE) Urine RBC 0-2 /HPF (0 - 0) H Urine WBC 0 /HPF (0 - 0) Urine Squamous Epithelial Cells None /LPF (NONE/OCC) Urine Amorphous Sediment Few /LPF (NONE) H Urine Bacteria Occasional /HPF (NONE) EKG Diagnostic Results Rate: normal Rhythm: NSR ST Segments: no acute changes Rhythm Strip Diag. Results EP Interpretation: yes Rate: 70's Rhythm: NSR, no PVC's, no ectopy Chest X-Ray Diagnostic Results Chest X-Ray Diagnostic Results : Chest X-Ray Ordered: Yes # of Views/Limited/Complete: 1 View Indication: Other EP Interpretation: Yes Interpretation: no consolidation, no effusion, no pneumothorax, no acute cardiopulmonary disease Impression: No acute disease Electronically Signed by: Naz burns DO Last Vital Signs Date Time Temp Pulse Resp B/P (MAP) Pulse Ox O2 Delivery O2 Flow Rate FiO2 07/14/18 14:34 97.0 92 17 167/86 95 Room Air Disposition: ADMITTED INPATIENT Condition: Stable Referrals: NON PHYSICIAN (PCP) Naz Burns DO Jul 14, 2018 16:07
[2018-07-14 17:45] VITALS: BP 156/98
[2018-07-14] MEDS ORDERED: HydrALAZINE 25mg tab ORAL PRN (19:30)
[2018-07-14 20:00] VITALS: BP 157/100
--- NOTE | 2018-07-14 20:25 | Geriatric Progress Note ---
Subjective Interval Events Patient admitted for leukocytosis, ARTUR. Additional abnormal lab findings include glu 202, alb 2.3, Ca 10.4 c/w moderate hypercalcemia. PE notable for increased tone with hemiplegia on R, flexion in UE, extension in LE Skin changes on buttocks, sacrum noted. PMH: Chronic bipolar vs. schizoaffective disorder. Malignant pancreatic neuroendocrine tumor, + nodes, s/p resection, no chemo. Prior CVA, including apparent significant L hemispheric event in last month. Poorly controlled DM. HTN. Dyslipidemia. Prostatism. DJD. Dysphagia. Recurrent encephalopathy associated with acute medical diatheses. Hx B12 deficiency. Discussed in detail with son Kartik Solares. Hydrate. Accucheks, SSI. CT head. Recheck labs. Antihypertensive tx as before. Hold depakote. Hold atorvastatin. Dictated #[id number]. Geriatric Geriatric Last 24 Hour Vital Signs Date Time Temp Pulse Resp B/P (MAP) Pulse Ox O2 Delivery O2 Flow Rate FiO2 07/14/18 17:53 Room Air 07/14/18 17:45 97.7 77 20 156/98 (117) 07/14/18 17:04 98.1 72 15 168/79 95 Room Air 07/14/18 16:05 176/96 07/14/18 14:34 97.0 92 17 167/86 95 Room Air 07/14/18 12:40 96.7 93 16 158/85 94 Room Air 07/14/18 12:38 97.9 77 18 125/79 96 Room Air Laboratory Tests Test 07/14/18 13:20 07/14/18 13:30 White Blood Count 15.7 K/UL (4.8-10.8) H Red Blood Count 4.13 M/UL (4.70-6.10) L Hemoglobin 11.6 G/DL (14.2-18.0) L Hematocrit 35.2 % (42.0-52.0) L Mean Corpuscular Volume 85 FL (80-99) Mean Corpuscular Hemoglobin 28.2 PG (27.0-31.0) Mean Corpuscular Hemoglobin Concent 33.1 G/DL (32.0-36.0) Red Cell Distribution Width 13.1 % (11.6-14.8) Platelet Count 862 K/UL (150-450) H Mean Platelet Volume 6.5 FL (6.5-10.1) Neutrophils (%) (Auto) % (45.0-75.0) Lymphocytes (%) (Auto) % (20.0-45.0) Monocytes (%) (Auto) % (1.0-10.0) Eosinophils (%) (Auto) % (0.0-3.0) Basophils (%) (Auto) % (0.0-2.0) Differential Total Cells Counted 100 Neutrophils % (Manual) 53 % (45-75) Lymphocytes % (Manual) 35 % (20-45) Monocytes % (Manual) 5 % (1-10) Eosinophils % (Manual) 6 % (0-3) H Basophils % (Manual) 1 % (0-2) Band Neutrophils 0 % (0-8) Platelet Estimate Increased H Platelet Morphology Normal Hypochromasia 1+ Sodium Level 136 MMOL/L (136-145) Potassium Level 3.8 MMOL/L (3.5-5.1) Chloride Level 101 MMOL/L (98-107) Carbon Dioxide Level 28 MMOL/L (21-32) Anion Gap 7 mmol/L (5-15) Blood Urea Nitrogen 18 mg/dL (7-18) Creatinine 1.8 MG/DL (0.55-1.30) H Estimat Glomerular Filtration Rate 37.7 mL/min (>60) Glucose Level 202 MG/DL (74-106) H Lactic Acid Level 1.40 mmol/L (0.4-2.0) Calcium Level 10.4 MG/DL (8.5-10.1) H Total Bilirubin 0.2 MG/DL (0.2-1.0) Aspartate Amino Transf (AST/SGOT) 21 U/L (15-37) Alanine Aminotransferase (ALT/SGPT) 22 U/L (12-78) Alkaline Phosphatase 107 U/L (46-116) Total Creatine Kinase 98 U/L (26-308) Creatine Kinase MB 1.4 NG/ML (0.0-3.6) Creatine Kinase MB Relative Index 1.4 Troponin I 0.005 ng/mL (0.000-0.056) Total Protein 7.2 G/DL (6.4-8.2) Albumin 2.3 G/DL (3.4-5.0) L Globulin 4.9 g/dL Albumin/Globulin Ratio 0.5 (1.0-2.7) L Urine Color Pale yellow Urine Appearance Clear Urine pH 7 (4.5-8.0) Urine Specific [place] 1.010 (1.005-1.035) Urine Protein 4+ (NEGATIVE) H Urine Glucose (UA) 4+ (NEGATIVE) H Urine Ketones Negative (NEGATIVE) Urine Blood 1+ (NEGATIVE) H Urine Nitrite Negative (NEGATIVE) Urine Bilirubin Negative (NEGATIVE) Urine Urobilinogen Normal MG/DL (0.0-1.0) Urine Leukocyte Esterase Negative (NEGATIVE) Urine RBC 0-2 /HPF (0 - 0) H Urine WBC 0 /HPF (0 - 0) Urine Squamous Epithelial Cells None /LPF (NONE/OCC) Urine Amorphous Sediment Few /LPF (NONE) H Urine Bacteria Occasional /HPF (NONE) Current Medications Medications (Trade) Dose Ordered Sig/Connor Route PRN Reason Start Time Stop Time Status Last Admin Dose Admin Cefepime HCl 1 gm/ Sodium Chloride 55 ml @ 110 mls/hr Q12H IV 07/14/18 13:15 07/15/18 13:14 07/14/18 13:40 Height (Feet): 5 Height (Inches): 6.00 Weight (Pounds): 186 [facility] MD Jul 14, 2018 20:25
[2018-07-14] MEDS: NovoLOG Insulin Flexpen SUBQ SCH (21:00)
[2018-07-14] MEDS: Metoprolol 25mg tab ORAL SCH (23:10)
[2018-07-14] MEDS: 1/2NS w/KCl 20mEq 1000ml 1,000 ML IV SCH (23:10)
--- NOTE | 2018-07-14 23:29 | History and Physical Report ---
DATE OF ADMISSION: 07/14/2018 PATIENT ID: The patient is a 68-year-old gentleman who presented to the emergency room because of an elevated white count. He was found to have acute kidney injury and hypercalcemia and is admitted for further evaluation and treatment. HISTORY OF PRESENT ILLNESS: The patient is a gentleman who was last seen in approximately March of last year at a custodial facility. He had a long history of multiple chronic medical problems, most prominent of which was chronic psychosis associated with possible bipolar disease versus schizoaffective disease complicated by paranoia, agitation, and labile affect. He was reported to become acutely ill and was sent by the custodial facility to [facility] [place] and was lost to follow-up. He was subsequently placed in a custodial facility [place] where his attending physician was Dr. Sandeep Iyer. According to the patient's son in the interim, he has been hospitalized several times at [facility], once with some type of hypertensive episode and on another occasion the cause was reported to be a significant stroke. He was placed back at the custodial [facility], but apparently was noted to have a leukocytosis of 15.1 and for whatever clinical reason was thought to require hospitalization. On this occasion, he was sent to [facility] rather than [facility] and I was asked to resume caring for the patient by the patient's son who is a surrogate decision maker. In the emergency room, the patient was found to have a leukocytosis without a clear source. Other laboratory work revealed a creatinine of 1.8, which is somewhat higher than his unknown baseline, which is in the low to mid 1s. He also was noted to have a calcium of 10.4 with an albumin of 2.3 representing significant moderate hypercalcemia as well as a glucose of 202. The patient was admitted for further evaluation and treatment. Functionally, the patient is considerably different from than when last seen in March. Specifically, he appears to have a hemiplegia with extension in the right lower extremity and flexion in right upper extremity and with significant word-finding difficulties and limited spontaneous speech. The patient himself is somewhat responsive, appears to possibly recognize the examiner, but is unable to name the examiner. He stated he was in the hospital, but was unable to name the hospital. He is unable to state where he had been living recently, but stated that he had been living with his family. He initially reported he had 4 children, but subsequently agreed he had 3. He was able to name his daughter spontaneously, but not his sons although he easily recognized their names. The patient was unable to specify any complaints. PAST MEDICAL HISTORY: 1. 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 2. 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 3. Prior small vessel cerebrovascular disease with apparent interval history of significant left hemispheric event in the last month. 4. Poorly controlled diabetes mellitus. 5. Hypertension. 6. Hyperlipidemia. 7. Prostatism. 8. Degenerative joint disease. 9. Recurrent encephalopathy associated with acute medical diatheses. 10. History of B12 deficiency. 11. Dysphagia secondary to apparent stroke. 12. Nonambulatory status. 13. Seizure disorder with rare seizures not requiring antiepileptic therapy. MEDICATIONS: The patient's medications per the available transfer records seems to include diabetic snacks and high-protein nourishments, pureed low-sodium diet with honey-thick liquids, anti fungal cream to the buttocks, aspirin 325 mg daily, Lipitor 40 mg at bedtime, benzocaine menthol lozenges every 8 hours p.r.n., Depakote 250 mg daily, docusate sodium 100 mg b.i.d., Lovenox 40 mg daily, hydralazine 25 mg every 8 hours p.r.n., sliding scale insulin, lisinopril 20 mg daily, metoprolol 25 mg b.i.d., multivitamins, nifedipine 20 mg daily, PRN nitroglycerin, Plavix 75 mg daily, Shweta-Charlie daily, senna p.r.n., and Tylenol as needed. ALLERGIES: No known allergies. SOCIAL HISTORY: The patient previously was a successful businessman, but has been psychotic and dysfunctional for quite a number of years. He kept his youngest child out of school and moved from hotel to hotel with this youngest son until 2 years ago when he was hospitalized at [facility]. His ex- is a licensed clinical social worker psychiatric. He has 2 sons and a daughter with 1 son in the [place] area and a daughter, a [employer] crew member in the [facility]. His youngest son is apparently living with his daughter. FAMILY HISTORY: Not immediately contributory. REVIEW OF SYSTEMS: The patient simply states that he is okay, but is unable to describe any specific symptoms at the present time. PHYSICAL EXAMINATION: VITAL SIGNS: Blood pressure was 156/98 with a heart rate of 77, respiratory rate of 20, temperature of 97.7, and oxygen saturation 95% on room air. GENERAL: The patient is a well-developed, chronically ill-appearing gentleman, not in overt acute distress. HEAD AND NECK: Reveals somewhat increased tone, but no meningismus in the neck. The sclerae are anicteric. The oropharynx not well visualized. CHEST: Grossly clear to auscultation. CARDIAC: Reveals a regular rhythm. ABDOMEN: Reveals normal bowel sounds. Soft and nontender without masses or organomegaly appreciated. No suprapubic tenderness is elicited. EXTREMITIES: Reveal no dependent edema currently. NEUROLOGIC: The patient is able to move the left upper and lower extremity; however, he appears to have a hemiplegia with the right leg extended with increased tone and right upper extremity flexed with increased tone. It is not clear, but the patient may have a field cut on the right side as well. The patient is able to respond occasionally, but has decreased spontaneous speech as well as naming difficulties. SKIN: The skin on the buttocks and sacral area appeared to exhibit some element of moisture associated skin damage, possibly an incontinence associated with dermatitis with possibly very superficial erosions. LABORATORY DATA: The patient's laboratory data is notable for sodium 136, potassium 3.8, chloride 101, bicarb 28, BUN 18, creatinine 1.8, glucose 202, lactate 1.40, and calcium 10.4. Total bilirubin 0.2, AST 21, ALT 22, and alkaline phosphatase 107. CK 98, MB 1.4, and troponin 0.005. Total protein 7.2. Albumin 2.3. White count of 15.3, hematocrit 35.2%, MCV 85, and platelet count 862. Normal differential. Urinalysis reveals pH of 1.010, 4+ protein, 4+ glucose, 1+ blood, 0 to 2 rbc's, 0 wbc's. Chest x-ray is reported to show clear lung kenyon with no evidence of infiltrate or effusion or fluid redistribution. IMPRESSION: The patient presents with elevated white count, which in reality probably simply represents his splenic resection and possibly some demargination associated with his acute process. He does appear to be volume depleted. This may be associated with his dysphagia, but also may be a associated with the diuretic effects of hyperglycemia and hypercalcemia. The hyperglycemia is associated with his diabetes and this has been difficult to control for some time. It is thought possibly that the difficulty may be exacerbated by his underlying neuroendocrine pathology with perhaps secretion of proglycemic factors. The hypercalcemia is of less certain etiology, but obviously could be associated with neuroendocrine paraneoplastic syndrome as well. The patient also has clearly had some sort of interval insult to the left hemisphere, whether this is in fact stroke or perhaps malignant presentation or some combination of the two is unclear at the present time. A CT scan of the brain will be obtained to further evaluate this and the patient's son has agreed to attempt to obtain imaging from [facility] for further information. The patient's laboratory work is not particularly suggestive of bulky disease in terms of malignant recurrence and therefore he may be experiencing manifestations more of a hormonal or paraneoplastic type rather than bulky disease. A long discussion was held with the patient's son about the patient's various pathologies. The fact that he had deteriorated significantly since he was last seen in March of last year. The son concurred with an attempt at hydration and a current workup to evaluate the degree of brain injury he has experienced in the recent months. It is possible given the known underlying malignancy the chronic psychosis and the extremely limited functional status associated with the apparent cerebrovascular accident that the patient may have such poor quality of life that the family feels that would be in his best interest to employ strictly comfort care rather than aggressive therapy at this time. They will make this decision based on the findings of the initial workup. The patient will be hydrated and antihypertensive therapy will be continued along with sliding scale insulin. The patient's Depakote will be held since unclear whether this may be further impairing his cognitive status at the present time and his statin therapy will be held for the time being. Additional interventions will then be considered depending on the patient's initial response to therapy and additional laboratory findings. Milton Rodriguez M.D. DR: GILDARDO JOB#: [id number] CC: RADHA
[2018-07-15] VITALS: BP 136/77
[2018-07-15 04:00] VITALS: BP 168/92
[2018-07-15] MEDS: NovoLOG Insulin Flexpen SUBQ SCH ×4 (06:24→21:37)
[2018-07-15 08:00] VITALS: BP 159/91
[2018-07-15 08:54] LABS: BASOPHILS % (AUTO) 1.9 % (0.0-2.0); EOSINOPHILS % (AUTO) 5.2 % (0.0-3.0); HEMATOCRIT 30.6 % (42.0-52.0); LYMPHOCYTES % (AUTO) 23.6 % (20.0-45.0); MEAN CORPUSCULAR VOLUME 86 FL (80-99); MONOCYTES % (AUTO) 7.1 % (1.0-10.0); NEUTROPHILS % (AUTO) 62.3 % (45.0-75.0); PLATELET COUNT 758 K/UL (150-450); RED BLOOD COUNT 3.55 M/UL (4.70-6.10); RED CELL DISTRIBUTION WIDTH 13.5 % (11.6-14.8); WHITE BLOOD COUNT 12.9 K/UL (4.8-10.8)
[2018-07-15] MEDS: Lisinopril 20mg tab ORAL SCH (08:58)
[2018-07-15] MEDS: Metoprolol 25mg tab ORAL SCH ×2 (08:59→21:28)
--- NOTE | 2018-07-15 09:27 | Diagnostic Imaging Report ---
Indication: Altered mental status Technique: spiral acquisitions obtained through the brain. Angled axial and coronal 5 x 5 mm slices were reconstructed. No IV contrast utilized. Radiation dose was minimized using automated exposure control Total dose length product 1432.39 mGycm. CTDIvol(s) 70.38 mGy Comparison: none FINDINGS: No acute hemorrhage or edema. No mass effect or midline shift. There is age-related enlargement of the ventricles and extra axial CSF spaces. There is periventricular deep white matter ischemic change. Normal peoples-white differentiation. There is an old lacunar infarct in the left benitez radiata. There is evidence of prior bilateral cataract surgery. Visualized sinuses are unremarkable. Intact calvarium. The mastoids are clear. IMPRESSION: Chronic and age-related changes. Negative for acute intracranial bleed or mass effect Old left benitez radiata lacunar infarct The CT scanner at [facility] is accredited by the [employer] and the scans are performed using protocols designed to limit radiation exposure to as low as reasonably achievable to attain images of sufficient resolution adequate for diagnostic evaluation
[2018-07-15 09:29] LABS: ANION GAP 6 mmol/L (5-15); BLOOD UREA NITROGEN 13 mg/dL (7-18); CARBON DIOXIDE 26 MMOL/L (21-32); CHLORIDE 102 MMOL/L (98-107); CREATININE 1.6 MG/DL (0.55-1.30); POTASSIUM 5.1 MMOL/L (3.5-5.1); SODIUM 134 MMOL/L (136-145)
[2018-07-15] MEDS: 1/2NS w/KCl 20mEq 1000ml 1,000 ML IV SCH (09:50)
[2018-07-15 12:00] VITALS: BP 150/90
[2018-07-15 16:00] VITALS: BP 148/86
--- NOTE | 2018-07-15 16:05 | Cardiology Report ---
APPROVED REPORT EKG Measurement Heart [id number] [id number] Normal sinus rhythm Incomplete right bundle branch block Left anterior fascicular block Cannot rule out Anterior infarct, age undetermined Abnormal ECG
--- NOTE | 2018-07-15 16:58 | Geriatric Progress Note ---
Assessment/Plan Assessment/Plan Encephalopathy, leukocytosis likely primarily due to metabolic factors. Will continue IVF, add MgO supplement. Bp poorly controlled, add TTS -1. Add low dose levemir for hyperglycemia. Needs P.T. eval re flexion of RUE to avoid contracturing, mobilization as tolerated. Add Calazime for IAD. Discussed d/c options with discharge planning. No clear evidence of neoplastic syndrome, no indication for further w/u since patient unable to tolerate aggressive tx. Continue other tx. Discussed with: patient, hospital staff Subjective Interval Events Patient alert, smiles, verbal output slow. No specific c/o elicited. Staff reports good intake p.o. S.T. notes no overt aspiration. Bp still running high. Blood sugars high 100s to 200. CT head reveals apparent old L benitez radiata infarct as well as DWM changes. No suggestion of metastatic disease. Labs with improvement of azotemia. Hypercalcemia improved but still elevated. Mg somewhat low. Wbc still elevated but only mildly. Buttocks still erythematous, using triad for eroded area. Staff reports patient excoriating. Subjective No apparent distress although patient not able to express himself in any detail. Geriatric Geriatric Last 24 Hour Vital Signs Date Time Temp Pulse Resp B/P (MAP) Pulse Ox O2 Delivery O2 Flow Rate FiO2 07/15/18 12:00 98.4 81 17 150/90 (110) 07/15/18 09:00 Room Air 07/15/18 08:59 69 132/69 07/15/18 08:59 69 132/69 07/15/18 08:58 132/69 07/15/18 08:00 98.6 75 17 159/91 (113) 96 07/15/18 04:00 96.8 89 16 168/92 (117) 97 07/15/18 00:00 97.9 83 16 136/77 (96) 95 07/14/18 23:10 103 157/100 07/14/18 21:00 Room Air 07/14/18 20:00 97.7 103 17 157/100 (119) 95 07/14/18 17:53 Room Air 07/14/18 17:45 97.7 77 20 156/98 (117) 07/14/18 17:04 98.1 72 15 168/79 95 Room Air Intake and Output 07/14/18 07/15/18 19:00 07:00 Output Total 300 ml Balance -300 ml Output Urine Total 300 ml # Voids 1 3 # Bowel Movements 2 1 Laboratory Tests Test 07/15/18 07:05 White Blood Count 12.9 K/UL (4.8-10.8) H Red Blood Count 3.55 M/UL (4.70-6.10) L Hemoglobin 10.0 G/DL (14.2-18.0) L Hematocrit 30.6 % (42.0-52.0) L Mean Corpuscular Volume 86 FL (80-99) Mean Corpuscular Hemoglobin 28.3 PG (27.0-31.0) Mean Corpuscular Hemoglobin Concent 32.8 G/DL (32.0-36.0) Red Cell Distribution Width 13.5 % (11.6-14.8) Platelet Count 758 K/UL (150-450) H Mean Platelet Volume 6.6 FL (6.5-10.1) Neutrophils (%) (Auto) 62.3 % (45.0-75.0) Lymphocytes (%) (Auto) 23.6 % (20.0-45.0) Monocytes (%) (Auto) 7.1 % (1.0-10.0) Eosinophils (%) (Auto) 5.2 % (0.0-3.0) H Basophils (%) (Auto) 1.9 % (0.0-2.0) Sodium Level 134 MMOL/L (136-145) L Potassium Level 5.1 MMOL/L (3.5-5.1) Chloride Level 102 MMOL/L (98-107) Carbon Dioxide Level 26 MMOL/L (21-32) Anion Gap 6 mmol/L (5-15) Blood Urea Nitrogen 13 mg/dL (7-18) Creatinine 1.6 MG/DL (0.55-1.30) H Estimat Glomerular Filtration Rate 43.2 mL/min (>60) Glucose Level 151 MG/DL (74-106) H Calcium Level 9.0 MG/DL (8.5-10.1) Calcium (Send out) Pending Magnesium Level 1.4 MG/DL (1.8-2.4) L Vitamin B12 Level 1008 PG/ML (193-986) H Thyroid Stimulating Hormone (TSH) 2.169 uiU/mL (0.358-3.740) Parathyroid Hormone (Intact) Pending Current Medications Medications (Trade) Dose Ordered Sig/Connor Route PRN Reason Start Time Stop Time Status Last Admin Dose Admin Amlodipine Besylate (Norvasc) 10 mg DAILY ORAL 07/15/18 09:00 08/14/18 08:59 07/15/18 08:59 Aspirin (ASA) 325 mg DAILY ORAL 07/15/18 09:00 08/14/18 08:59 07/15/18 08:57 Clopidogrel Bisulfate (Plavix) 75 mg DAILY ORAL 07/15/18 09:00 08/14/18 08:59 07/15/18 08:58 Dextrose (Dextrose 50%) 25 ml Q30M PRN IV Hypoglycemia 07/14/18 19:30 08/13/18 19:29 Dextrose (Dextrose 50%) 50 ml Q30M PRN IV Hypoglycemia 07/14/18 19:30 08/13/18 19:29 Hydralazine HCl (Apresoline) 25 mg Q6H PRN ORAL For High Blood Pressure 07/14/18 19:30 08/13/18 19:29 Insulin Aspart (NovoLOG) BEFORE MEALS AND HS SUBQ 07/14/18 21:00 08/13/18 20:59 07/15/18 12:12 Lisinopril (Prinivil) 20 mg DAILY ORAL 07/15/18 09:00 08/14/18 08:59 07/15/18 08:58 Metoprolol Tartrate (Lopressor) 25 mg Q12HR ORAL 07/14/18 21:00 08/13/18 20:59 07/15/18 08:59 Sodium 1,000 ml @ 75 mls/hr [id number] IV 07/14/18 20:30 08/13/18 20:29 07/14/18 23:10 Height (Feet): 5 Height (Inches): 6.00 Weight (Pounds): 183 General Appearance: no apparent distress, alert, non-toxic Head: normocephalic, atraumatic Eyes: bilateral anicteric ENT: normal voice Neck: full range of motion, no mass Respiratory: lungs clear Cardiovascular: regular rate, rhythm Gastrointestinal: normal bowel sounds, non tender, soft, no mass, no organomegaly Musculoskeletal: no calf tenderness Edema: no edema noted Generalized Neurologic: alert - smiles, limited verbal response., responsive - but with language deficit., no new focality, other - Able to straighten R arm with some discomfort. R leg with some tendency to extension with stimulation, but patient does not move to instruction. Skin: other - IAD/MASD, discussed with Winston, will try Calazime. Using Triad over eroded area on L aspect of rectal cleft. Milton Rodriguez MD Jul 15, 2018 16:58
[2018-07-15] MEDS: Magnesium Oxide 400mg tab ORAL SCH (17:42)
[2018-07-15 20:00] VITALS: BP 132/72
[2018-07-15] MEDS: Levemir Flexpen SUBQ SCH (21:36)
[2018-07-16] VITALS: BP 123/68
[2018-07-16 04:00] VITALS: BP 128/60
[2018-07-16] MEDS: NovoLOG Insulin Flexpen SUBQ SCH ×4 (06:03→21:00)
[2018-07-16 08:00] VITALS: BP 148/76
[2018-07-16] MEDS: Levemir Flexpen SUBQ SCH ×2 (09:00→21:01)
[2018-07-16] MEDS: Magnesium Oxide 400mg tab ORAL SCH ×3 (10:53→17:29)
[2018-07-16] MEDS: Metoprolol 25mg tab ORAL SCH ×2 (10:55→20:59)
[2018-07-16] MEDS: Lisinopril 20mg tab ORAL SCH (10:56)
[2018-07-16 12:00] VITALS: BP 138/90
--- NOTE | 2018-07-16 15:57 | Geriatric Progress Note ---
Assessment/Plan Assessment/Plan Clinically stabilizing. Bp improved with Catapres TTS. Glucoses under 200 with levemir. Awaiting d/c planning. Continue IVF. Recheck labs. Continue other regimen. Discussed with: hospital staff Subjective Interval Events Patient smiles on approach. Unable to articulate any specific needs or issues. Staff reports patient calmer, less motor agitation. Intake variable. Labs with no specific changes. 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 Limited review of records from [facility] suggests two infarcts in last two months. Constitutional: Denies: chills, sweats, fever Respiratory: Denies: orthopnea, shortness of breath Cardiovascular: Denies: chest pain, palpitations Gastrointestinal/Abdominal: Denies: abdominal pain, diarrhea, nausea, vomiting Genitourinary: Denies: dysuria Subjective No apparent distress although patient not able to express himself in any detail. Geriatric Geriatric Last 24 Hour Vital Signs Date Time Temp Pulse Resp B/P (MAP) Pulse Ox O2 Delivery O2 Flow Rate FiO2 07/16/18 10:56 126/76 07/16/18 10:55 95 126/76 07/16/18 10:55 95 126/76 07/16/18 04:00 97.7 78 20 128/60 (82) 95 07/16/18 00:00 97.9 73 20 123/68 (86) 96 07/15/18 21:28 76 132/72 07/15/18 21:00 Room Air 07/15/18 20:00 98.3 76 16 132/72 (92) 98 07/15/18 17:42 150/82 07/15/18 16:00 97.8 76 16 148/86 (106) 98 Intake and Output 07/15/18 07/16/18 18:59 06:59 Intake Total 600 ml 825 ml Balance 600 ml 825 ml IV Total 825 ml Other 600 ml # Voids 3 Current Medications Medications (Trade) Dose Ordered Sig/Connor Route PRN Reason Start Time Stop Time Status Last Admin Dose Admin Amlodipine Besylate (Norvasc) 10 mg DAILY ORAL 07/15/18 09:00 08/14/18 08:59 07/16/18 10:55 Aspirin (ASA) 325 mg DAILY ORAL 07/15/18 09:00 08/14/18 08:59 07/16/18 10:55 Clonidine HCl (Catapres TTS-1) 1 patch QWEEK TDERMAL 07/15/18 17:30 08/14/18 17:29 07/15/18 17:42 Clopidogrel Bisulfate (Plavix) 75 mg DAILY ORAL 07/15/18 09:00 08/14/18 08:59 07/16/18 10:55 Dextrose (Dextrose 50%) 25 ml Q30M PRN IV Hypoglycemia 07/14/18 19:30 08/13/18 19:29 Dextrose (Dextrose 50%) 50 ml Q30M PRN IV Hypoglycemia 07/14/18 19:30 08/13/18 19:29 Hydralazine HCl (Apresoline) 25 mg Q6H PRN ORAL For High Blood Pressure 07/14/18 19:30 08/13/18 19:29 Insulin Aspart (NovoLOG) BEFORE MEALS AND HS SUBQ 07/14/18 21:00 08/13/18 20:59 07/15/18 21:37 Insulin Detemir (Levemir) 3 units Q12HR SUBQ 07/15/18 21:00 08/14/18 20:59 07/16/18 09:00 Lisinopril (Prinivil) 20 mg DAILY ORAL 07/15/18 09:00 08/14/18 08:59 07/16/18 10:56 Magnesium Oxide (Mag-Ox 400mg) 400 mg THREE TIMES A DAY ORAL 07/15/18 18:00 08/14/18 17:59 07/16/18 10:53 Metoprolol Tartrate (Lopressor) 25 mg Q12HR ORAL 07/14/18 21:00 08/13/18 20:59 07/16/18 10:55 Sodium Chloride 1,000 ml @ 75 mls/hr [id number] IV 07/15/18 19:00 08/14/18 18:59 07/15/18 19:58 Height (Feet): 5 Height (Inches): 6.00 Weight (Pounds): 183 General Appearance: well nourished, no apparent distress, alert, non-toxic Head: normocephalic, atraumatic Eyes: bilateral anicteric ENT: normal voice Neck: full range of motion, no mass Respiratory: lungs clear Cardiovascular: regular rate, rhythm Gastrointestinal: normal bowel sounds, non tender, soft, no mass, no organomegaly Musculoskeletal: no calf tenderness Edema: no edema noted Generalized Neurologic: alert, no new focality Milton Rodriguez MD Jul 16, 2018 15:57
[2018-07-16 16:00] VITALS: BP 136/62
[2018-07-16 20:00] VITALS: BP 148/79
[2018-07-17] VITALS: BP 175/93
[2018-07-17 04:00] VITALS: BP 177/91
[2018-07-17] MEDS: NovoLOG Insulin Flexpen SUBQ SCH ×3 (06:18→16:30)
[2018-07-17 08:00] VITALS: BP 151/81
[2018-07-17] MEDS: Lisinopril 20mg tab ORAL SCH (09:21)
[2018-07-17] MEDS: Magnesium Oxide 400mg tab ORAL SCH ×3 (09:22→19:01)
[2018-07-17] MEDS: Metoprolol 25mg tab ORAL SCH (09:22)
[2018-07-17] MEDS: Levemir Flexpen SUBQ SCH (09:26)
[2018-07-17 10:35] LABS: BASOPHILS % (AUTO) 1.4 % (0.0-2.0); EOSINOPHILS % (AUTO) 5.8 % (0.0-3.0); HEMATOCRIT 30.1 % (42.0-52.0); HEMOGLOBIN 9.9 G/DL (14.2-18.0); LYMPHOCYTES % (AUTO) 24.8 % (20.0-45.0); MEAN CORPUSCULAR VOLUME 86 FL (80-99); MONOCYTES % (AUTO) 7.3 % (1.0-10.0); NEUTROPHILS % (AUTO) 60.7 % (45.0-75.0); PLATELET COUNT 693 K/UL (150-450); RED BLOOD COUNT 3.51 M/UL (4.70-6.10); RED CELL DISTRIBUTION WIDTH 13.3 % (11.6-14.8); WHITE BLOOD COUNT 13.9 K/UL (4.8-10.8)
[2018-07-17 10:45] LABS: ANION GAP 7 mmol/L (5-15); BLOOD UREA NITROGEN 12 mg/dL (7-18); CARBON DIOXIDE 26 MMOL/L (21-32); CHLORIDE 101 MMOL/L (98-107); CREATININE 1.7 MG/DL (0.55-1.30); POTASSIUM 3.3 MMOL/L (3.5-5.1); SODIUM 134 MMOL/L (136-145)
[2018-07-17 12:00] VITALS: BP 146/85
[2018-07-17 16:00] VITALS: BP 157/75
[2018-07-17] MEDS ORDERED: NORVASC10 MG ORAL (16:43)
[2018-07-17] MEDS ORDERED: ASPIRIN325 MG ORAL (16:44)
[2018-07-17] MEDS ORDERED: CLONIDINE1 EAC1 TD ×2 (16:46→16:49)
[2018-07-17] MEDS ORDERED: PLAVIX75 MG ORAL (16:51)
[2018-07-17] MEDS ORDERED: LISINOPRIL20 MG ORAL (16:57)
[2018-07-17] MEDS ORDERED: METOPROLOL TART25 MG ORAL (17:08)
[2018-07-17] MEDS ORDERED: 1/2 NS 1000ml IV ONE (19:44)
--- NOTE | 2018-07-21 01:00 | Discharge Summary ---
DATE OF ADMISSION: 07/14/2018 DATE OF DISCHARGE: 07/17/2018 DISCHARGE DIAGNOSES: 1. Volume depletion. 2. Leukocytosis. 3. Possible acute kidney injury. 4. Hypercalcemia. 5. Mild hyperglycemia. 6. Colonization with MRSA and VRE. 7. 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 8. Right hemiparesis with cognitive deficit due to recent cerebrovascular accident. 9. Prior small vessel cerebrovascular disease. 10. Poorly-controlled diabetes mellitus. 11. Hypertension. 12. Hyperlipidemia. 13. Prostatism. 14. Degenerative joint disease. 15. History of B12 deficiency. 16. Dysphagia secondary to stroke. 17. 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 18. Seizure disorder, rare seizures not requiring antiepileptic therapy. 19. Nonambulatory status. HISTORY OF PRESENT ILLNESS: The patient is a 68-year-old gentleman, who presented to the emergency room because of elevated white count. PHYSICAL EXAMINATION: Details of the history and physical examination are per the dictation of 07/14/2018. HOSPITAL COURSE: The patient was admitted with the laboratory abnormalities noted, but with no clear-cut etiology. Evaluation failed to reveal specific septic focus. The patient did appear to be volume depleted and had hypercalcemia, which was moderately significant given that his albumin is 2.3. The patient was hydrated and observed off of antibiotics after the initial doses he received in the emergency room. Records of the patient's interval care over the last several months were obtained by the patient's son and on review did indicate apparently two cerebrovascular accidents in the interim resulting in his marked change in mental status, language proficiency, and hemiplegia. Once the patient was hydrated, he appeared to be at his baseline consistent with his prior metabolic status. Extensive discussion was held with the patient's son regarding goals of therapy and the patient's status, prognosis and discharge options. Ultimately, it was decided that no further additional acute medical care would benefit the patient. The patient's family were to decide after further discussion whether to ask for purely palliative care versus continued active therapy given the patient's poor quality of life and his poor prognosis. The patient is being discharged to a group home facility and will be followed there with further interventions per the family decision at that time. At the time of discharge, the patient's medications included Levemir 3 units q.12 hours, magnesium oxide 400 mg t.i.d., clonidine patch TTS-1 every week, Plavix 75 mg daily, amlodipine 10 mg daily, lisinopril 20 mg daily, and metoprolol 25 mg every 12 hours. Milton Rodriguez M.D. DR: YVONNE JOB#: [id number] CC:
== END 2018-07-17 19:45 | DRG 682 ==
LOC: EDBD 12:33 → EMR 13:40 → 4E 14:47 → EDBEDREQ 15:25
DX: N17.9 Acute kidney failure, unspecified (principal); G93.41 Metabolic encephalopathy; I69.351 Hemiplegia and hemiparesis following cerebral infarction affecting right dominant side; G40.89 Other seizures; D72.829 Elevated white blood cell count, unspecified; E83.52 Hypercalcemia; F31.9 Bipolar disorder, unspecified; F25.9 Schizoaffective disorder, unspecified; R13.10 Dysphagia, unspecified; E11.65 Type 2 diabetes mellitus with hyperglycemia; E86.9 Volume depletion, unspecified; Z85.07 Personal history of malignant neoplasm of pancreas; I69.391 Dysphagia following cerebral infarction; N40.0 Benign prostatic hyperplasia without lower urinary tract symptoms; I10 Essential (primary) hypertension; Z22.322 Carrier or suspected carrier of Methicillin resistant Staphylococcus aureus; I69.319 Unspecified symptoms and signs involving cognitive functions following cerebral infarction; E78.5 Hyperlipidemia, unspecified; M19.90 Unspecified osteoarthritis, unspecified site
CPT/HCPCS: 36415; 70450; 71045; 80048; 80053; 81003; 82550; 82553; 82607; 82962; 83605; 83735; 83970; 84443; 84484; 85007; 85025; 87040; 87081; 93005; 96365; 96366; 96368; 96375; 99283; J1815; S5561

== ENCOUNTER 2018-10-13 12:00 | Inpatient (IN) | payer MEDICARE, MEDICAID ==
[~2018-10-13] VITALS: Ht 167.6 cm; Wt 69.7 kg
[~2018-10-13 12:00] MED LIST changes: +ASPIRIN325 MG ORAL; +CLONIDINE1 EAC1 TD; +HYDRALAZINE HCL25 M2 PO; +LISINOPRIL20 MG ORAL; +LOVENOX40 MG/0.4 SUBQ; +METOPROLOL TART25 MG ORAL; +NORVASC10 MG ORAL; +PLAVIX75 MG ORAL
--- NOTE | 2018-10-13 12:08 | NUR ---
ED Nurse Note: Pt AIYANA from [facility] s/p fall from the bed at 0800 this morning andn upon arrival pt was hypotensive. Pt has a current BP of 92/68. Pt is A + O x1. Pt is DNR. Pt has a hx of DM, CVA w/ right sided weakness.
[2018-10-13 12:09] VITALS: BP 92/68
--- NOTE | 2018-10-13 12:30 | NUR ---
ED Nurse Note: Pt went down to CT.
--- NOTE | 2018-10-13 12:55 | Diagnostic Imaging Report ---
Indications: Status post fall from bed at 8:00 this morning with head trauma Technique: Spiral acquisitions obtained through the brain. Angled axial and coronal 5 x 5 mm slices were reconstructed. Total dose length product 1452.71 mGycm. CTDI vol(s) 70.38 mGy. Dose reduction achieved using automated exposure control Comparison: 07/15/2018 Findings: No evidence of acute calvarial fracture demonstrated. No acute intracranial hemorrhage nor edema, mass effect, nor midline shift. Old lacunar infarcts are seen in the left internal capsule and the left benitez radiata and in the left side of the lucero. There is age-related enlargement of the ventricles and extra axial CSF spaces again demonstrated. There is periventricular deep white matter chronic ischemic change noted. Otherwise normal peoples-white differentiation. The visualized orbits demonstrate likely prior bilateral cataract surgery. The mastoids are clear. The included sinuses are unremarkable Impression: Extensive chronic and age-related changes Old infarcts as described Negative for acute intracranial bleed or mass effect The CT scanner at [facility] is accredited by the [employer] and the scans are performed using protocols designed to limit radiation exposure to as low as reasonably achievable to attain images of sufficient resolution adequate for diagnostic evaluation.
--- NOTE | 2018-10-13 13:16 | NUR ---
Trevor ambriz in EDM - 10/13/18 at 1416 by [email or web address] ED Nurse Note: Urine has been collected and sent to lab.
[2018-10-13 13:17] LABS: BASOPHILS % (AUTO) 1.9 % (0.0-2.0); EOSINOPHILS % (AUTO) 1.6 % (0.0-3.0); HEMATOCRIT 36.2 % (42.0-52.0); HEMOGLOBIN 11.2 G/DL (14.2-18.0); LYMPHOCYTES % (AUTO) 31.7 % (20.0-45.0); MEAN CORPUSCULAR VOLUME 83 FL (80-99); NEUTROPHILS % (AUTO) 60.7 % (45.0-75.0); PLATELET COUNT 774 K/UL (150-450); RED BLOOD COUNT 4.37 M/UL (4.70-6.10); WHITE BLOOD COUNT 13.9 K/UL (4.8-10.8)
[2018-10-13 13:35] LABS: APPEARANCE,URINE CLEAR; BILIRUBIN, URINE NEGATIVE (NEGATIVE); COLOR,URINE PALE YELLOW; GLUCOSE, URINE (UA) 2+ (NEGATIVE); KETONES,URINE NEGATIVE (NEGATIVE); LEUKOCYTE ESTERASE ,URINE NEGATIVE (NEGATIVE); NITRITE,URINE NEGATIVE (NEGATIVE); PH,URINE 6.5 (4.5-8.0); PROTEIN,URINE 4+ (NEGATIVE); UROBILINOGEN,URINE NORMAL MG/DL (0.0-1.0)
[2018-10-13 13:41] LABS: ANION GAP 8 mmol/L (5-15); BLOOD UREA NITROGEN 28 mg/dL (7-18); CALCIUM 11.3 MG/DL (8.5-10.1); CARBON DIOXIDE 28 MMOL/L (21-32); CHLORIDE 104 MMOL/L (98-107); CREATININE 2.3 MG/DL (0.55-1.30); POTASSIUM 4.8 MMOL/L (3.5-5.1); SODIUM 140 MMOL/L (136-145)
[2018-10-13 13:55] LABS: ALANINE AMINOTRANSFERASE 13 U/L (12-78); ALBUMIN 2.7 G/DL (3.4-5.0); ALBUMIN/GLOBULIN RATIO 0.6 (1.0-2.7); ALKALINE PHOSPHATASE 104 U/L (46-116); ASPARTATE AMINO TRANSFERASE 10 U/L (15-37); BILIRUBIN,TOTAL 0.3 MG/DL (0.2-1.0); CKMB 1.2 NG/ML (0.0-3.6); CREATINE KINASE 35 U/L (26-308)
--- NOTE | 2018-10-13 14:00 | NUR ---
ED Nurse Note: Blood culture and lactic acid sent.
[2018-10-13 14:15] VITALS: BP 133/59
--- NOTE | 2018-10-13 14:19 | Emergency Room Report ---
History of Present Illness General Chief Complaint: Multiple Trauma/Fall Source: Patient Present Illness HPI 68-year-old male presents ED for evaluation. [facility] status [facility]. Had a witnessed fall today and hit his head. No LOC. Patient sent in for evaluation. Possibly taking blood thinners. Patient nonverbal at baseline. EMS also noted a patient was hypotensive. Normal blood pressure at facility but in triage systolic in the 60s. No other aggravating relieving factors. Denies any other associated symptoms Allergies: Coded Allergies: No Known Allergies (Unverified , 07/14/18) Patient History Past Medical History: HTN, GERD, dementia, other - hemiplegia Past Surgical History: none Pertinent Family History: none Social History: Denies: smoking, alcohol use, drug use Immunizations: UTD Reviewed Nursing Documentation: PMH: Agreed; PSxH: Agreed Nursing Documentation-PMH Past Medical History: No History, Except For Hx Cardiac Problems: Yes - Hyperlipidemia, Anemia, Vit B12 deficiency anemia Hx Hypertension: Yes Hx Pacemaker: No Hx Asthma: No Hx COPD: No Hx Cancer: No - Pancreatic CA Hx Gastrointestinal Problems: Yes - GERD Hx Dialysis: No Hx Neurological Problems: Yes - Difficulty in walking, generalized weakness Hx Cerebrovascular Accident: Yes - HEMIPLEGIA CEREBRAL INFARCTION Hx Dementia: Yes Hx Seizures: No Review of Systems All Other Systems: limited Physical Exam Vital Signs Date Time Temp Pulse Resp B/P (MAP) Pulse Ox O2 Delivery O2 Flow Rate FiO2 10/13/18 12:02 89 20 69/49 98 Room Air 10/13/18 12:09 98.2 10/13/18 12:09 98 Sp02 EP Interpretation: reviewed, normal General Appearance: no apparent distress, GCS 15, non-toxic, other - nonverbal Head: normocephalic Eyes: bilateral eye normal inspection, bilateral eye PERRL ENT: normal ENT inspection Neck: normal inspection Respiratory: normal inspection Cardiovascular #1: normal inspection Gastrointestinal: normal inspection Rectal: deferred Genitourinary: no CVA tenderness Musculoskeletal: normal inspection Neurologic: other - nonverbal Psychiatric: other - nonverbal Skin: normal inspection Lymphatic: normal inspection Procedures Critical Care Time Critical Care Time i. I feel this is a highly complex case requiring extensive working including EKG/Rhythm strip, Xray/CT/US, Blood/urine lab work, repeat exams while in ED, and administration of strong opiates/narcotics for pain control, admission to hospital or close patient follow up. Total time: 30 min bedside evaluation and treatment excludes procedures (EKG). Reason for critical care: hypotension Possible complications: hypotension, hypertension, MA, shock, arrhythmias, metabolic acidosis, end organ damage, respiratory failure. Interventions: labs, ivfs, ekg, CXR, CT head. reassessment of BP Course: Patient presenting for head injury. Hypotensive in the field. Systolic in the 60s. Given multiple fluid boluses. Patient has leukocytosis which is baseline. BUN/creatinine elevated. Troponins negative. CT head negative. UA negative. BP improved after IV fluid bolusing Consultations: nursing staff, EMS, PMD Performed by: Dr Multani Tolerated well condition = serious j. because of unstable vital signs this patient had a condition that could potentially threaten life or limb. I feel this is a critical patient who required my full attention while patient was considered critical. Total Critical Care Time excluding procedures was greater than 35 minutes Medical Decision Making Diagnostic Impression: Primary Impression: Head injury Qualified Codes: S09.90XA - Unspecified injury of head, initial encounter Additional Impressions: Renal insufficiency Hypotension Qualified Codes: I95.9 - Hypotension, unspecified Leukocytosis Qualified Codes: D72.829 - Elevated white blood cell count, unspecified ER Course Hospital Course 68-year-old male presents ED status post head injury. Hypotensive Differential diagnoses include: MA/unstable angina, arrythmia, dehydration, CVA/ TIA Clinical course Patient placed on stretcher. on library monitor. After initial history and physical I ordered labs, EKG, chest x-ray, IVFs, CT Brain labs reviewed- noted leukocytosis, hemoglobin/hematocrit ok, BUN/Cr elevated, trop negative, UA negative EKG- NSR, no acute ischemic changes interprted by me Chest x-ray- no acute process CT brain-unremarkable Patient initially hypotensive. Improved after IV fluid boluses On prior admissions patient also noted to have leukocytosis not attributable to any specific reason Case discussed with Dr. Rodriguez and he agreed to accept the patient to his service for further care and support I. I feel this is a highly complex case requiring extensive working including EKG/Rhythm strip, Xray/CT/US, Blood/urine lab work, repeat exams while in ED, and administration of strong opiates/narcotics for pain control, admission to hospital or close patient follow up. Diagnosis - head injury, renal insufficiency, hypotension, leukocytosis admitted to floor in serious condition Labs Test 10/13/18 13:00 10/13/18 13:10 White Blood Count 13.9 K/UL (4.8-10.8) Red Blood Count 4.37 M/UL (4.70-6.10) Hemoglobin 11.2 G/DL (14.2-18.0) Hematocrit 36.2 % (42.0-52.0) Mean Corpuscular Volume 83 FL (80-99) Mean Corpuscular Hemoglobin 25.6 PG (27.0-31.0) Mean Corpuscular Hemoglobin Concent 31.0 G/DL (32.0-36.0) Red Cell Distribution Width 16.0 % (11.6-14.8) Platelet Count 774 K/UL (150-450) Mean Platelet Volume 5.7 FL (6.5-10.1) Neutrophils (%) (Auto) 60.7 % (45.0-75.0) Lymphocytes (%) (Auto) 31.7 % (20.0-45.0) Monocytes (%) (Auto) 4.0 % (1.0-10.0) Eosinophils (%) (Auto) 1.6 % (0.0-3.0) Basophils (%) (Auto) 1.9 % (0.0-2.0) Sodium Level 140 MMOL/L (136-145) Potassium Level 4.8 MMOL/L (3.5-5.1) Chloride Level 104 MMOL/L (98-107) Carbon Dioxide Level 28 MMOL/L (21-32) Anion Gap 8 mmol/L (5-15) Blood Urea Nitrogen 28 mg/dL (7-18) Creatinine 2.3 MG/DL (0.55-1.30) Estimat Glomerular Filtration Rate 28.4 mL/min (>60) Glucose Level 147 MG/DL (74-106) Calcium Level 11.3 MG/DL (8.5-10.1) Total Bilirubin 0.3 MG/DL (0.2-1.0) Aspartate Amino Transf (AST/SGOT) 10 U/L (15-37) Alanine Aminotransferase (ALT/SGPT) 13 U/L (12-78) Alkaline Phosphatase 104 U/L (46-116) Total Creatine Kinase 35 U/L (26-308) Creatine Kinase MB 1.2 NG/ML (0.0-3.6) Creatine Kinase MB Relative Index 3.4 Troponin I 0.000 ng/mL (0.000-0.056) Pro-B-Type Natriuretic Peptide 480 pg/mL (0-125) Total Protein 7.2 G/DL (6.4-8.2) Albumin 2.7 G/DL (3.4-5.0) Globulin 4.5 g/dL Albumin/Globulin Ratio 0.6 (1.0-2.7) Urine Color Pale yellow Urine Appearance Clear Urine pH 6.5 (4.5-8.0) Urine Specific [place] 1.015 (1.005-1.035) Urine Protein 4+ (NEGATIVE) Urine Glucose (UA) 2+ (NEGATIVE) Urine Ketones Negative (NEGATIVE) Urine Blood 1+ (NEGATIVE) Urine Nitrite Negative (NEGATIVE) Urine Bilirubin Negative (NEGATIVE) Urine Urobilinogen Normal MG/DL (0.0-1.0) Urine Leukocyte Esterase Negative (NEGATIVE) Urine RBC 2-4 /HPF (0 - 0) Urine WBC 5-10 /HPF (0 - 0) Urine Squamous Epithelial Cells Few /LPF (NONE/OCC) Urine Bacteria Few /HPF (NONE) Urine Hyaline Casts 2-4 /LPF (NONE) Urine Fine Granular Casts 2-4 /LPF (NONE) Urine Mucus Few /LPF (NONE/OCC) EKG Diagnostic Results Rate: normal Rhythm: NSR ST Segments: no acute changes ASA given to the pt in ED: No Rhythm Strip Diag. Results EP Interpretation: yes Rhythm: NSR, no PVC's, no ectopy Chest X-Ray Diagnostic Results Chest X-Ray Diagnostic Results : Chest X-Ray Ordered: Yes # of Views/Limited/Complete: 1 View EP Interpretation: Yes Interpretation: no consolidation, no effusion, no pneumothorax, no acute cardiopulmonary disease Impression: No acute disease Electronically Signed by: Electronically signed by Miky Multani MD CT/MRI/US Diagnostic Results CT/MRI/US Diagnostic Results : Imaging Test Ordered: CT head Impression no acute process Last Vital Signs Date Time Temp Pulse Resp B/P (MAP) Pulse Ox O2 Delivery O2 Flow Rate FiO2 10/13/18 12:09 98 20 Room Air 98 10/13/18 12:09 98.2 92/68 98 Status: improved Disposition: ADMITTED INPATIENT Condition: Serious Referrals: Milton Rodriguez MD (PCP) Miky Multani MD Oct 13, 2018 14:18
--- NOTE | 2018-10-13 14:25 | NUR ---
NURSE NOTES: Received a call from Dr. Rodriguez. He says he is in [facility] and coming up to put orders soon. Awaiting for the doctor.
--- NOTE | 2018-10-13 15:10 | NUR ---
ED Nurse Note: Gave telephone report to ISAC Pina. Admission packet pending.
--- NOTE | 2018-10-13 15:37 | NUR ---
ED Nurse Note: Pt transferred up to med surg unit. No acute distress noted. No belongings noted.
--- NOTE | 2018-10-13 15:55 | NUR ---
NURSE NOTES: Received patient from ER via [facility]. Patient is alert and oriented x2. Not in respiratory/cardia distress. Breathing is even and unlabored. No s/s of pain or discomfort. Denies headache, nausea or vomiting.Iv intact. Skin assessment done noted with redness on sacra, right lateral foot, right heel, left lateral foot,left heel and left knee. picture taken and uploaded.Initiated protocol wound care , proper incontinent care done and no visible skin break, swelling or bruise @ this time. Patient's right upper and lower ex's contracted. medical record obtained from alf records and previous hospitalization records. No belongings. Bed is in lowest position and locked. Bed alarm is on zone 2, side rails x3 up due to s/p fall @8:00am @ alf. Patient is calm @ this time, does not try to get out of bed. Frequent visual check for fall precaution. Patient's room is close to the nursing station. Dr. Rodriguez was paged for admission orders. Will continue plan of care.
--- NOTE | 2018-10-13 16:43 | Diagnostic Imaging Report ---
Indication: Shortness of breath Technique: One view of the chest Comparison: 07/14/2018 Findings: Lungs and pleural spaces are clear. Heart size is normal Impression: No acute process
--- NOTE | 2018-10-13 17:27 | History & Physical ---
History and Physical History & Physicial Date of Admission: October 13, 2018. Patient Identification: 68 y/o resident of [facility], reported as falling out of bed and hitting head hard. Circumstances not entirely clear. Patient states he hit the left frontotemporal area, but denies tenderness. History of Present Illness: Mr. Solares is a 68-year-old gentleman who was brought to the emergency room because of any [facility] facility where he reportedly fell out of bed hitting his head with fair amount of force. The details of this event are unclear. The patient was an unreliable historian reports that he fell when his leg gave way. He reports hitting his left frontotemporal area, but with palpation he denies tenderness over that area, and there is no visible ecchymosis or deformity. While in the emergency room Mr. Solares underwent brain imaging with no evidence of acute bleed. However he is anticoagulated on Xarelto, and requires continued observation 24-48 hours. In addition the patient presented with an episode of hypotension initially documented on transfer, and subsequently in the emergency department. This appears to have responded to intravenous fluids. Laboratory dialysis reveals evidence of acute kidney injury superimposed on chronic kidney disease, probably prerenal in etiology. Currently the patient is lying in bed, smiling on approach. He recognizes the examiner by name. He reports that he does not feel comfortable, with pain "all over". Otherwise no specific complaints can be elicited. He complained of being hungry, and apparently he relatively well when presented with his diet. Recently had his [facility] facility, the patient has had evidence of dysphoria, associated with his impaired functional status. He is complaining of generalized discomfort but without specific localization or abnormal findings. Because of recent cerebrovascular accident he does have evidence of flexion contracture during in both right upper and lower extremities and does have some discomfort with passive range of motion. His overall situation has been discussed in detail with his son, Kartik Solares, who is his surrogate decision maker. Given his apparent limited quality of life, the family has requested that his care be conservative, with DNR/DNI status, and no use of enteral feedings. There appears to have been some loss of weight over recent months, which may in part have been due to poor oral intake, but which also may be attributable in part to the functional changes associated with his cerebrovascular accident. Past Medical History: 1. 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 2. Right hemiparesis with cognitive deficits associated with recent cerebrovascular accident. 3. 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 4. 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 5. 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 6. Hypertension. 7. Dyslipidemia. 8. Prostatism. 9. Degenerative joint disease. 10. History of seizure disorder with rare seizures not requiring antiepileptic routine therapy. 11. Nonambulatory status. 12. Dysphagia associated with cerebrovascular accident. 13. Chronic kidney disease stage III. Medications: 1. Amlodipine 10 mg daily. 2. Baclofen 5 mg prior to therapy. 3. Clonidine TTS 1 weekly. 4. Lipitor 10 mg nightly. 5. Lisinopril 20 mg daily. 6. Xarelto 20 mg daily. 7. Levemir 12 units every 12 hours. 8. Metoprolol tartrate 25 mg every 12 hours. 9. Nuedexta 20/10 1 capsule twice daily. 10. Magnesium oxide 400 mg 3 times daily. 11. NovoLog 10 units before meals 3 times daily. Allergies: NKA. 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 His ex- is a licensed clinical school social worker. He has 2 sons and a daughter with 1 son in [facility] and a daughter who is a hourly team members at the [employer] in the [facility]. His youngest son is apparently living with his daughter at this time. Family History: Not currently contributory. Review of Systems: Patient's responses are limited and detailed review of systems is not possible. As stated above he complains of pain all over, but is unable to localize the symptoms are described or characteristics. Physical Examination: Blood pressure 112/58. Heart rate 79 and regular. Respiratory rate 15. Temperature 98.3 axillary. Saturation 98% on room air. Patient smiles on approach, he is alert, and his speech is consistent with his baseline. His cognitive status also appears to be consistent with baseline. Head and neck: Normocephalic atraumatic skull with no evidence of ecchymosis or deformity, and no localized tenderness. Range of motion appears to be consistent with baseline with no complaint of pain. No cervical masses or adenopathy appreciated. Chest: Breath sounds appear to be clear. Cardiovascular: Rhythm is regular with no gallops murmurs or rubs appreciated at this time Abdomen: Normal bowel sounds, soft nontender without masses or organomegaly appreciated. Extremities: Right upper and lower flexion deformities with partial ability to reduce the flexion, increased tone throughout. Left-sided range of motion without complaint of pain elicited. No significant distal edema. Neurologic: Right hemiparesis appears to be consistent with baseline. No evidence of new focality. Laboratory: WBC 13.9, hematocrit 36.2%, MCV 83, platelet count 774. Sodium 140, potassium 4.8, chloride 104, carbon dioxide 28, BUN 28, creatinine 2.3 glucose 147, lactate less than 0.3, calcium 11.3 total bilirubin 0.3, AST 10 , ALT 13, alkaline phosphatase 104, total CK 35, MB 1.2, troponin 0.0, proBNP 480, total protein 7.2, albumin 2.7. Urinalysis reveals 4+ protein, 2+ glucose, blood 1+, negative nitrites, negative leukocyte esterase, RBC 2-4, WBC 5-10, bacteria few. Chest x-ray reveals no evidence of acute disease. CT scan of the head shows diffuse atrophy with advanced white matter disease and evidence of old lacunes, but no evidence of acute hemorrhage. Impression/Plan: 1. Traumatic head injury with no evidence of hemorrhage or other major sequela. Monitor with neuro checks and clinically given the fact that the patient is on Xarelto for treatment of acute deep venous thrombosis. Risk of intracranial bleeding was discussed previously with the patient's surrogate decision maker his son Yfn, and present therapy continued for now. 2. Evidence of volume depletion associated with hypercalcemia, likely multifactorial. Patient has had a history of significant hypercalcemia, felt in part to be associated with his neuroendocrine tumor. The hypercalcemia improved after resection of his tumor but tends to recur when medically stressed. Given his functional status aggressive treatment of any residual neuroendocrine tumor has been declined by the patient and his family. Further diagnostics in this vein are not likely to be of benefit. Patient has begun hydration in the emergency room and continued hydration will be attempted to both correct the hypercalcemia and improve the patient's intravascular volume status. 3. Patient appears to have acute kidney injury superimposed on his chronic kidney disease. This is likely prerenal in etiology, and hopefully will respond to hydration as well. 4. Despite the patient's dysphagia, he appears to be able to handle more solid textures which he appears to prefer. A bedside speech therapy evaluation will be requested with an attempt to advance his texture has tolerated. However a barium swallow would likely not add significant diagnostic information since enteral feeding is not an option. 5. Once the patient's functional status has been stabilized the plan is to discharge him back to his [facility] facility. 6. A message was left with the patient's son been regarding his current status. 7. Additional interventions be considered depending on the patient's initial response to therapy and further diagnostic results. Milton Rodriguez MD Oct 13, 2018 17:27
--- NOTE | 2018-10-13 18:21 | NUR ---
NURSE NOTES: Received medication list from retirement and Dr. Rodriguez verified all the orders one by one. RN put the meds. RN reminded of episodes of low BP upon arrival and prior to admission. Dr. Rodriguez wants to continue all his BP meds and stated that " His blood pressure is usually elevated." order read back and carried out.
--- NOTE | 2018-10-13 18:22 | NUR ---
NURSE NOTES: Dr. Rodriguez is aware of PLT of 774 and wants to continue xarelto.
--- NOTE | 2018-10-13 19:30 | NUR ---
HAND-OFF: Report given to Tara.
--- NOTE | 2018-10-13 19:37 | NUR ---
NURSE NOTES: Received report from Cori Johnson RN. Patient sleeping. On room air, no signs of distress or labored breathing. IV intact, patent, and infusing IV fluids. Bed in lowest position with call light in reach. Will continue with plan of care.
[2018-10-13 20:00] VITALS: BP 99/85
[2018-10-13] MEDS: Metoprolol 25mg tab ORAL SCH (21:00)
[2018-10-13] MEDS: Nuedexta Capsule 20/10mg ORAL SCH (21:32)
[2018-10-13] MEDS: Levemir Flexpen SUBQ SCH (21:39)
[2018-10-14] VITALS: BP 146/79
[2018-10-14 04:00] VITALS: BP 131/75
[2018-10-14] MEDS: NovoLOG Insulin Flexpen SUBQ SCH ×3 (06:53→16:50)
[2018-10-14 07:22] LABS: BASOPHILS % (AUTO) 2.8 % (0.0-2.0); HEMOGLOBIN 9.3 G/DL (14.2-18.0); LYMPHOCYTES % (AUTO) 38.4 % (20.0-45.0); MEAN CORPUSCULAR VOLUME 83 FL (80-99); MONOCYTES % (AUTO) 7.7 % (1.0-10.0); PLATELET COUNT 666 K/UL (150-450); RED CELL DISTRIBUTION WIDTH 15.8 % (11.6-14.8); WHITE BLOOD COUNT 10.7 K/UL (4.8-10.8)
[2018-10-14 07:28] LABS: ANION GAP 8 mmol/L (5-15); BLOOD UREA NITROGEN 25 mg/dL (7-18); CALCIUM 10.4 MG/DL (8.5-10.1); CARBON DIOXIDE 25 MMOL/L (21-32); CHLORIDE 105 MMOL/L (98-107); POTASSIUM 4.4 MMOL/L (3.5-5.1); SODIUM 138 MMOL/L (136-145)
--- NOTE | 2018-10-14 07:38 | NUR ---
HAND-OFF: Report given to Cori Johnson RN.
--- NOTE | 2018-10-14 07:40 | NUR ---
NURSE NOTES: Received patine tin bed, awake, verbally responsive. Alert and oriented x2. Denies any pain or discomfort. Not in acute respiratory/cardiac distress. No change in LOC. IV intact, no s/s of infiltration. No swelling or bruise from the previous fall prior to admission. Bed is in lowest position and locked. Bed alarm is on and side rails x3 up. Will continue plan of care.
[2018-10-14 08:00] VITALS: BP 136/96
--- NOTE | 2018-10-14 08:00 | NUR ---
NURSE NOTES: Patient consumed 75% of breakfast with assist from CONCESSION STAND ATTENDANT without any difficulties or coughing.
--- NOTE | 2018-10-14 08:27 | NUR ---
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 HYPOTENSION VS: BP 69/49, P 89, T 98.2, RR 20, SpO2 98 WBC 13.9, RBC 4.37, Hgb 11.2, Hct 36.2, BUN 28, CR 2.[address] Impression: Extensive chronic and age-related changes. Negative for acute intracranial bleed or mass effect. IS:NS x1L IV BACLOFEN 5mg LEVEMIR SUBQ LIPITOR 10mg ADMITTED TO MED/SURG DC PLAN: RETURN TO [facility]
[2018-10-14] MEDS ORDERED: Lisinopril 20mg tab ORAL SCH (09:00)
[2018-10-14] MEDS: Metoprolol 25mg tab ORAL SCH ×2 (09:00→21:40)
[2018-10-14] MEDS: Xarelto 10mg tab ORAL SCH (10:11)
[2018-10-14] MEDS: Nuedexta Capsule 20/10mg ORAL SCH ×2 (10:11→21:00)
[2018-10-14] MEDS: Magnesium Oxide 400mg tab ORAL SCH ×3 (10:11→17:27)
[2018-10-14] MEDS: Levemir Flexpen SUBQ SCH ×2 (10:15→21:00)
[2018-10-14 12:00] VITALS: BP 122/73
[2018-10-14] MEDS ORDERED: Analgesic Balm 15gm TOPIC PRN (14:45)
--- NOTE | 2018-10-14 14:56 | NUR ---
NURSE NOTES: Patient is more alert and oriented and stated that his whole left leg hurt. Patient is able to move his leg with mild pain, (+) for Kaz's sign, no swelling or bruise. Eugene MIRAMONTES RN spoke to Dr. Rodriguez and relayed with new order to apply Bengay TID PRN. RN asked if venous duplex or other imaging needs to be done. Dr. Carlton said "No". Order read back and carried out. Will continue to monitor and reposition done.
--- NOTE | 2018-10-14 15:00 | NUR ---
NURSE NOTES: Patient will be seen by ST ryan Breaux.
[2018-10-14 16:00] VITALS: BP 132/73
--- NOTE | 2018-10-14 16:55 | NUR ---
NURSE NOTES: Patient's blood sugar is 76mg/dl and no s/s of hypoglycemia. Given orange juice since patient refused to eat pureed diet.Will continue to monitor.
--- NOTE | 2018-10-14 17:00 | NUR ---
NURSE NOTES: Patient started agitating stating" I do not like this food. I can't eat this anymore.I want real food." Patient is on pureed diet with nectar thick liquid but asked for sandwitch. RN explained why he can't have sand witch or solid food.Patient started yelling @ RN. Paged Dr. Rodriguez. Awaiting for return call.
--- NOTE | 2018-10-14 17:30 | NUR ---
NURSE NOTES: Rechecked blood sugar, 89mg/dl, received call from Dr. Rodriguez and relayed that patient refused to eat pureed diet and asking for solid diet and his blood sugar and was not able to be seen by ST. Dr. Rodriguez order to change his diet to [facility]. soft chopped diet with close supervision and no changes in insulin order.Dr. Rodriguez agreed to give tylenol PRN for mild pain and fever. Order read back and carried out.
--- NOTE | 2018-10-14 18:00 | NUR ---
NURSE NOTES: RN followed up with central for P200 mattress x3.
--- NOTE | 2018-10-14 18:05 | NUR ---
NURSE NOTES: Patient refused to take Baclofen and Magnesium. RN explained the risks and benefits. Patient refused x3.
--- NOTE | 2018-10-14 19:46 | Geriatric Progress Note ---
Assessment/Plan Problems: (1) Dysphagia (2) Sequelae, post-stroke (3) Cognitive deficit status post cerebrovascular accident (4) Spastic hemiparesis affecting dominant side (5) Neuroendocrine carcinoma metastatic to multiple sites (6) Post splenectomy syndrome (7) Diabetic neuropathy (8) Bipolar disorder (9) Altered mental status (10) Volume depletion (11) Chronic paranoid psychosis (12) HTN (hypertension) (13) Diabetes mellitus out of control (14) Diabetic nephropathy (15) Encephalopathy (16) Hx of seizure disorder Assessment/Plan Functionally considerable more alert. Given relatively low bp, will d/c lisinopril for now, continue Catapres TTS-1, metoprolol. Given behavioral episodes may need to consider resuming psychotropics and/or Cymbalta. Will attempt thin liquids with close monitoring to see if consistency can be liberalized, since patient likely would be able to take fluids much better. No evidence of new neurologic symptoms, continue to monitor. Continue IV hydration, recheck labs. Because of borderline low MCV, hx of Fe deficiency, will check Fe studies. After patient consented, discussed his condition with son Artem in detail. Explained diagnoses, condition, and therapeutic choices made by son, Kartik Solares, based on prognosis and quality of life. Hopefully, can return to SNF in day or two. Discussed with: patient, family, hospital staff Subjective Interval Events Patient smiling. Tolerated chopped texture. Much happier with meal. Considerably more alert and responsive than yesterday. Antihypertensives held due to low bp. Artem, son, at bedside. Staff reported LLE pain c/o earlier, but currently patient's c/o is non- specific. Labs with normalization of wbc. Persistent thrombocytosis associated with post- splenectomy state. Azotemia improved with hydration. Subjective Limited ability to respond, but generally denies discomfort except with respect to non-specific pain in RUE, BLEs. Geriatric Geriatric Last 24 Hour Vital Signs Date Time Temp Pulse Resp B/P (MAP) Pulse Ox O2 Delivery O2 Flow Rate FiO2 10/14/18 16:00 98.1 73 18 132/73 (92) 97 10/14/18 12:00 97.5 84 16 122/73 (89) 98 10/14/18 10:47 108/69 10/14/18 10:12 74 108/69 10/14/18 09:00 Room Air 10/14/18 09:00 74 108/69 10/14/18 09:00 108/69 10/14/18 08:00 97.6 89 18 136/96 (109) 100 10/14/18 04:00 97.4 83 18 131/75 (93) 96 10/14/18 00:00 98.0 90 18 146/79 (101) 94 10/13/18 21:00 Room Air 10/13/18 21:00 89 99/65 10/13/18 20:00 98.1 89 18 99/85 (90) 96 Intake and Output 10/13/18 10/14/18 19:00 07:00 Intake Total 2360 ml Output Total 300 ml Balance 2060 ml Intake Oral 360 ml IV Total 2000 ml Output Urine Total 300 ml Laboratory Tests Test 10/14/18 06:25 White Blood Count 10.7 K/UL (4.8-10.8) Red Blood Count 3.60 M/UL (4.70-6.10) L Hemoglobin 9.3 G/DL (14.2-18.0) L Hematocrit 30.0 % (42.0-52.0) L Mean Corpuscular Volume 83 FL (80-99) Mean Corpuscular Hemoglobin 25.8 PG (27.0-31.0) L Mean Corpuscular Hemoglobin Concent 31.0 G/DL (32.0-36.0) L Red Cell Distribution Width 15.8 % (11.6-14.8) H Platelet Count 666 K/UL (150-450) H Mean Platelet Volume 5.7 FL (6.5-10.1) L Neutrophils (%) (Auto) 47.0 % (45.0-75.0) Lymphocytes (%) (Auto) 38.4 % (20.0-45.0) Monocytes (%) (Auto) 7.7 % (1.0-10.0) Eosinophils (%) (Auto) 4.0 % (0.0-3.0) H Basophils (%) (Auto) 2.8 % (0.0-2.0) H Sodium Level 138 MMOL/L (136-145) Potassium Level 4.4 MMOL/L (3.5-5.1) Chloride Level 105 MMOL/L (98-107) Carbon Dioxide Level 25 MMOL/L (21-32) Anion Gap 8 mmol/L (5-15) Blood Urea Nitrogen 25 mg/dL (7-18) H Creatinine 2.0 MG/DL (0.55-1.30) H Estimat Glomerular Filtration Rate 33.4 mL/min (>60) Glucose Level 98 MG/DL (74-106) Calcium Level 10.4 MG/DL (8.5-10.1) H Current Medications Medications (Trade) Dose Ordered Sig/Connor Route PRN Reason Start Time Stop Time Status Last Admin Dose Admin Acetaminophen (Tylenol) 650 mg Q4H PRN ORAL Mild Pain/Temp > 100.5 10/14/18 18:47 11/13/18 18:46 Amlodipine Besylate (Norvasc) 10 mg DAILY ORAL 10/14/18 09:00 11/13/18 08:59 10/14/18 10:12 Atorvastatin Calcium (Lipitor) 10 mg BEDTIME ORAL 10/13/18 21:00 11/12/18 20:59 10/13/18 21:33 Baclofen (Lioresal) 5 mg BID ORAL 10/13/18 18:00 11/12/18 17:59 10/14/18 10:12 Clonidine HCl (Catapres TTS-1) 1 patch QWEEK TDERMAL 10/14/18 09:00 11/13/18 08:59 10/14/18 10:47 Dextromethorphan/ Quinidine (Nuedexta Capsule) 1 cap Q12HR ORAL 10/13/18 21:00 11/12/18 20:59 10/14/18 10:11 Insulin Aspart (NovoLOG) 10 units NOVOTIAC SUBQ 10/14/18 06:30 11/13/18 06:29 10/14/18 12:15 Insulin Detemir (Levemir) 12 units Q12HR SUBQ 10/13/18 21:00 11/12/18 20:59 10/14/18 10:15 Magnesium Oxide (Mag-Ox 400mg) 400 mg THREE TIMES A DAY ORAL 10/14/18 09:00 11/13/18 08:59 10/14/18 13:37 Menthol/Methyl Salicylate (Bengay) 1 applic TIDPRN PRN TOPIC PAIN IN LEFT LEG 10/14/18 14:45 11/13/18 14:44 10/14/18 15:32 Metoprolol Tartrate (Lopressor) 25 mg Q12HR ORAL 10/13/18 21:00 11/12/18 20:59 Rivaroxaban (Xarelto) 20 mg DAILY ORAL 10/14/18 09:00 11/13/18 08:59 10/14/18 10:11 Sodium Chloride 1,000 ml @ 75 mls/hr [id number] IV 10/13/18 19:00 11/12/18 18:59 10/14/18 08:56 Height (Feet): 5 Height (Inches): 6.00 Weight (Pounds): 153 General Appearance: no apparent distress, alert Head: normocephalic, atraumatic Eyes: bilateral anicteric ENT: normal voice Neck: full range of motion, no mass Respiratory: decreased breath sounds Cardiovascular: regular rate, rhythm Gastrointestinal: normal bowel sounds, non tender, soft, no mass, no organomegaly Musculoskeletal: no calf tenderness, decreased range of motion - increased tone , flexion deformities RU and LE., other - LLE ROM with no pain, limited hip ROM with internal and external rotation. Edema: no edema noted Generalized Neurologic: alert, responsive, no new focality, other - R plegia as before. Psychiatric: other - Somewhat labile and uncooperative at times. Milton Rodriguez MD Oct 14, 2018 19:46
--- NOTE | 2018-10-14 19:47 | NUR ---
NURSE NOTES: Patient alert x oriented to self, hospital but is confused, on room air, no sign of distress and no sign of shortness of breath; bed in lowest position, side rails up x2, locked, bed alarm on, call light within reach; will keep monitoring.
--- NOTE | 2018-10-14 19:47 | NUR ---
HAND-OFF: Report given to Keyona.
[2018-10-14 20:00] VITALS: BP 131/72
[2018-10-15] VITALS: BP 131/76
[2018-10-15 04:00] VITALS: BP 131/68
[2018-10-15] MEDS: NovoLOG Insulin Flexpen SUBQ SCH ×3 (06:30→17:38)
[2018-10-15 07:01] LABS: BASOPHILS % (AUTO) 2.1 % (0.0-2.0); EOSINOPHILS % (AUTO) 4.3 % (0.0-3.0); HEMOGLOBIN 9.1 G/DL (14.2-18.0); LYMPHOCYTES % (AUTO) 39.8 % (20.0-45.0); MEAN CORPUSCULAR VOLUME 83 FL (80-99); MONOCYTES % (AUTO) 6.9 % (1.0-10.0); NEUTROPHILS % (AUTO) 46.9 % (45.0-75.0); PLATELET COUNT 639 K/UL (150-450); WHITE BLOOD COUNT 10.4 K/UL (4.8-10.8)
[2018-10-15 07:49] LABS: ALANINE AMINOTRANSFERASE 12 U/L (12-78); ALBUMIN 2.3 G/DL (3.4-5.0); ALBUMIN/GLOBULIN RATIO 0.6 (1.0-2.7); ALKALINE PHOSPHATASE 86 U/L (46-116); ANION GAP 8 mmol/L (5-15); ASPARTATE AMINO TRANSFERASE 14 U/L (15-37); BILIRUBIN,TOTAL 0.2 MG/DL (0.2-1.0); BLOOD UREA NITROGEN 21 mg/dL (7-18); CALCIUM 9.6 MG/DL (8.5-10.1); CARBON DIOXIDE 25 MMOL/L (21-32); CHLORIDE 103 MMOL/L (98-107); CREATININE 1.8 MG/DL (0.55-1.30); POTASSIUM 4.4 MMOL/L (3.5-5.1); SODIUM 136 MMOL/L (136-145)
[2018-10-15 08:00] VITALS: BP 130/72
[2018-10-15 08:13] LABS: % IRON SATURATION 17 % (15-50); IRON 29 ug/dL (50-175); TOTAL IRON BINDING CAPACITY 173 ug/dL (250-450)
[2018-10-15] MEDS: Nuedexta Capsule 20/10mg ORAL SCH (08:16)
[2018-10-15] MEDS: Xarelto 10mg tab ORAL SCH (08:16)
[2018-10-15] MEDS: Metoprolol 25mg tab ORAL SCH (08:17)
[2018-10-15] MEDS: Magnesium Oxide 400mg tab ORAL SCH ×3 (08:17→17:44)
--- NOTE | 2018-10-15 08:41 | NUR ---
HAND-OFF: Report given to ISAC Gillespie.
[2018-10-15] MEDS: Levemir Flexpen SUBQ SCH (08:50)
[2018-10-15 09:16] LABS: FERRITIN 108 NG/ML (8-388)
--- NOTE | 2018-10-15 11:10 | NUR ---
ST NOTE: BEDSIDE SWALLOW EVAL RECEIVED BEDSIDE SWALLOW EVAL ORDER CHART REVIEWED PRIOR THE EVALUATION REFERRED BY PRIMARY PHYSICIAN, DR. CASTREJON. PT IS A 68-YEAR-OLD GENTLEMAN WHO WAS ADMITTED DUE TO POST FALL AT THE [facility]. DURING THE ER, PT UNDERWENT CT HEAD SCAN, NEGATIVE FOR ACUTE INTRACRANIAL BLEED, HOWEVER, IT INDICATED THAT OLD LACUNAR INFARCTS ARE SEEN IN THE LEFT INTERNAL CAPSULE AND LEFT MAK RADIATA AND IN THE LEFT SIDE OF THE CRISSY; AND CHEST X-RAY WAS CLEAR. AFTER REVIEWING PT'S CHART, UNKNOWN PT'S DIET AT [facility], HOWEVER, PER LAST ADMISSION AT [facility] [place], PT WAS PUT ON CCHO(MEDIUM) PUREE WITH HONEY THICK LIQUIDS AT [facility] AND CONTINUED THE SAME DIET DURING THE HOSPITALIZATION STAY; AND PT WAS PUT ON CCHO(MEDIUM) REGULAR WITH THIN LIQUIDS DIET IN 2018 ADMISSION. REGARDING PHYSICIAN ORDERS FOR LIFE-SUSTAINING TREATMENT(POLST), PT IS DNR/DNI, COMFORT-FOCUSED TREATMENT AND NO ARTIFICIAL MEAN OF NUTRITION, INCLUDING FEEDING TUBES. PT'S PAST MEDICAL HISTORY INCLUDES: H/O CVA(? WHEN) WITH R-SIDED RESIDUE/WEAKNESS, DEMENTIA, HTN, DMII, H/O PANCREATIC CA S/P INCLUDING SPLENIC RESECTION, GERD, HTN, H/O SEIZURE DISORDER, PYSCH(CHRONIC PSYCHOSIS VERUS SCHIZOAFFECTIVE DISEASE, ANXIETY AND DEPRESSION). INITIAL IMPRESSION: PT SEEN AT BEDSIDE UPRIGHT POSITION IN AM, ALERT, COOPERATIVE, ABLE TO PARTICIPATE IN THE FULL BEDSIDE SWALLOW EVAL, PT MINIMAL VERBAL EXPRESSION, HOWEVER, ANSWERED SIMPLE YES AND NO QUESTIONS WITH HEAD NODDING. BREAKFAST TRAY WAS IN FRONT OF THE PT AND RNGILDARDO WAS AT THE BEDSIDE. DURING THE ORAL MOTOR EXAMINATION, MISSING A FEW UPPER AND LOWER TEETH. FAIR LABIAL MOVEMENT BUT FUNCTIONAL; MILDLY SLOW LINGUAL MOVEMENT TO AND FROM BOTH SIDES, MILDLY REDUCED LINGUAL STRENGTH. PO TRIALS WERE PRESENTED WITH THIN LIQUID(TSPX5 TEASPOON), NECTAR THICK(TSP-2OZ), PUREE AND CHOPPED MASTICATED SOLID. PT REQUIRED ASSISTANCE DURING MEALS(1TO1 FEED). DURING PO TRIALS, SLOW MASTICATION TIME WITH ROTARY CHEW, AND ADEQUATE BOLUS FORMATION, NO ANTERIOR LEAKAGE WITH THIN AND NECTAR THICK LIQUIDS VIA TEASPOON, MILDLY DELAYED ORAL TRANSIT TIME(3 TO 4 SECS) FROM MOUTH TO PT ELEVATED HYOID BONE, FAIR TO GOOD LARYNGEAL ELEVATION, NO OVERT S/S OF ASPIRATION. OVERALL, PT WAS ABLE TO TOLERATE SOFT(CHOPPED) WITH NECTAR THICK LIQUIDS, PT CONSUMED 100% OF MEAL. OVERALL, PT PROBABLE PRESENTS WITH MILD OROPHARYNGEAL DYSPHAGIA. GIVEN PT HAS HISTORY OF CVA, PT HAS SOME RISK FOR SILENT ASPIRATION. RECOMMENDATIONS: 1. FOR QUALITY OF LIFE, CONTINUE CCHO(MEDIUM) SOFT(CHOPPED) WITH NECTAR THICK LIQUIDS WITH STRICT ASPIRATION PRECAUTIONS WITH 1TO1 FEEDING. 2. THIN LIQUIDS PO TRIALS AT TSP LEVEL. 3. ADVANCED DIET TOLERATED. 4. CONSIDER MODIFIED BARIUM SWALLOW STUDY IF NEEDED. DISCUSSED WITH RNGILDARDO AND PT. POSTED ASPIRATION/REFLUX PRECAUTIONS SIGN.
[2018-10-15 11:48] VITALS: BP 126/68
[2018-10-15] MEDS ORDERED: Iron Sucrose 100 MG in NS 55 ML IV SCH (15:00)
[2018-10-15 16:00] VITALS: BP 140/75
--- NOTE | 2018-10-15 17:35 | Geriatric Progress Note ---
Assessment/Plan Problems: (1) Dysphagia (2) Sequelae, post-stroke (3) Cognitive deficit status post cerebrovascular accident (4) Spastic hemiparesis affecting dominant side (5) Neuroendocrine carcinoma metastatic to multiple sites (6) Post splenectomy syndrome (7) Diabetic neuropathy (8) Bipolar disorder (9) Altered mental status (10) Volume depletion (11) Chronic paranoid psychosis (12) HTN (hypertension) (13) Diabetes mellitus out of control (14) Diabetic nephropathy (15) Encephalopathy (16) Hx of seizure disorder Assessment/Plan Appears to be at baseline. Return to SNF. Discussed with: patient, hospital staff Subjective Interval Events Patient alert, denies discomfort. Staff reports good intake. Tolerating some thin liquids with precautions. Labs with further improvement in azotemia, no leukocytosis. Hypercalcemia resolved. Magnesium normal. Had low iron stores, given initial dose of Venofer. Constitutional: Denies: chills, pain, sweats, fever Respiratory: Denies: shortness of breath Cardiovascular: Denies: chest pain Gastrointestinal/Abdominal: Denies: abdominal pain Genitourinary: Denies: dysuria Subjective Limited ability to respond, but generally denies discomfort except with respect to non-specific pain in RUE, BLEs. Geriatric Geriatric Last 24 Hour Vital Signs Date Time Temp Pulse Resp B/P (MAP) Pulse Ox O2 Delivery O2 Flow Rate FiO2 10/15/18 16:00 98.3 58 18 140/75 (96) 97 10/15/18 11:48 97.8 69 18 126/68 (87) 97 10/15/18 09:00 Room Air 10/15/18 08:17 61 131/68 10/15/18 08:17 61 131/68 10/15/18 08:00 97.4 66 18 130/72 (91) 98 10/15/18 04:00 97.0 61 18 131/68 (89) 97 10/15/18 00:00 98.2 69 16 131/76 (94) 97 10/14/18 21:40 82 131/72 10/14/18 21:00 Room Air 10/14/18 20:00 97.9 82 18 131/72 (91) 96 Intake and Output 10/14/18 10/15/18 19:00 07:00 Intake Total 1155 ml Output Total 1300 ml Balance 1155 ml -1300 ml Intake Oral 480 ml IV Total 675 ml Output Urine Total 1300 ml # Voids 2 Laboratory Tests Test 10/15/18 06:30 White Blood Count 10.4 K/UL (4.8-10.8) Red Blood Count 3.50 M/UL (4.70-6.10) L Hemoglobin 9.1 G/DL (14.2-18.0) L Hematocrit 29.0 % (42.0-52.0) L Mean Corpuscular Volume 83 FL (80-99) Mean Corpuscular Hemoglobin 26.1 PG (27.0-31.0) L Mean Corpuscular Hemoglobin Concent 31.4 G/DL (32.0-36.0) L Red Cell Distribution Width 16.0 % (11.6-14.8) H Platelet Count 639 K/UL (150-450) H Mean Platelet Volume 6.0 FL (6.5-10.1) L Neutrophils (%) (Auto) 46.9 % (45.0-75.0) Lymphocytes (%) (Auto) 39.8 % (20.0-45.0) Monocytes (%) (Auto) 6.9 % (1.0-10.0) Eosinophils (%) (Auto) 4.3 % (0.0-3.0) H Basophils (%) (Auto) 2.1 % (0.0-2.0) H Sodium Level 136 MMOL/L (136-145) Potassium Level 4.4 MMOL/L (3.5-5.1) Chloride Level 103 MMOL/L (98-107) Carbon Dioxide Level 25 MMOL/L (21-32) Anion Gap 8 mmol/L (5-15) Blood Urea Nitrogen 21 mg/dL (7-18) H Creatinine 1.8 MG/DL (0.55-1.30) H Estimat Glomerular Filtration Rate 37.7 mL/min (>60) Glucose Level 67 MG/DL (74-106) L Calcium Level 9.6 MG/DL (8.5-10.1) Magnesium Level 1.8 MG/DL (1.8-2.4) Iron Level 29 ug/dL (50-175) L Total Iron Binding Capacity 173 ug/dL (250-450) L Percent Iron Saturation 17 % (15-50) Unsaturated Iron Binding 144 ug/dL (112-346) Ferritin 108 NG/ML (8-388) Total Bilirubin 0.2 MG/DL (0.2-1.0) Aspartate Amino Transf (AST/SGOT) 14 U/L (15-37) L Alanine Aminotransferase (ALT/SGPT) 12 U/L (12-78) Alkaline Phosphatase 86 U/L (46-116) Total Protein 6.1 G/DL (6.4-8.2) L Albumin 2.3 G/DL (3.4-5.0) L Globulin 3.8 g/dL Albumin/Globulin Ratio 0.6 (1.0-2.7) L Current Medications Medications (Trade) Dose Ordered Sig/Connor Route PRN Reason Start Time Stop Time Status Last Admin Dose Admin Acetaminophen (Tylenol) 650 mg Q4H PRN ORAL Mild Pain/Temp > 100.5 10/14/18 18:47 11/13/18 18:46 Amlodipine Besylate (Norvasc) 10 mg DAILY ORAL 10/14/18 09:00 11/13/18 08:59 10/15/18 08:17 Atorvastatin Calcium (Lipitor) 10 mg BEDTIME ORAL 10/13/18 21:00 11/12/18 20:59 10/14/18 21:39 Baclofen (Lioresal) 5 mg BID ORAL 10/13/18 18:00 11/12/18 17:59 10/15/18 08:16 Clonidine HCl (Catapres TTS-1) 1 patch QWEEK TDERMAL 10/14/18 09:00 11/13/18 08:59 10/14/18 10:47 Dextromethorphan/ Quinidine (Nuedexta Capsule) 1 cap Q12HR ORAL 10/13/18 21:00 11/12/18 20:59 10/15/18 08:16 Insulin Aspart (NovoLOG) 10 units NOVOTIAC SUBQ 10/14/18 06:30 11/13/18 06:29 10/15/18 12:03 Insulin Detemir (Levemir) 12 units Q12HR SUBQ 10/13/18 21:00 11/12/18 20:59 10/15/18 08:50 Magnesium Oxide (Mag-Ox 400mg) 400 mg THREE TIMES A DAY ORAL 10/14/18 09:00 11/13/18 08:59 10/15/18 11:54 Menthol/Methyl Salicylate (Bengay) 1 applic TIDPRN PRN TOPIC PAIN IN LEFT LEG 10/14/18 14:45 11/13/18 14:44 10/14/18 15:32 Metoprolol Tartrate (Lopressor) 25 mg Q12HR ORAL 10/13/18 21:00 11/12/18 20:59 10/15/18 08:17 Rivaroxaban (Xarelto) 20 mg DAILY ORAL 10/14/18 09:00 11/13/18 08:59 10/15/18 08:16 Sodium Chloride 1,000 ml @ 75 mls/hr [id number] IV 10/13/18 19:00 11/12/18 18:59 10/15/18 11:03 Height (Feet): 5 Height (Inches): 6.00 Weight (Pounds): 153 General Appearance: no apparent distress, alert Head: normocephalic, atraumatic Eyes: bilateral anicteric ENT: normal voice Neck: full range of motion, no mass Respiratory: decreased breath sounds Cardiovascular: regular rate, rhythm Gastrointestinal: normal bowel sounds, non tender, soft, no mass, no organomegaly Musculoskeletal: no calf tenderness Edema: no edema noted Generalized Neurologic: no new focality Milton Rodriguez MD Oct 15, 2018 17:35
[2018-10-15] MEDS ORDERED: LEVEMIR FL100 UNIT/1 SUBQ (17:43)
[2018-10-15] MEDS ORDERED: BACLOFEN10 MG ORAL (17:43)
[2018-10-15] MEDS ORDERED: XARELTO10 MG ORAL (17:43)
[2018-10-15] MEDS ORDERED: NOVOLOG100 UNITS1 SUBQ (17:43)
--- NOTE | 2018-10-15 18:10 | Cardiology Report ---
APPROVED REPORT EKG Measurement Heart [id number] [id number] Normal sinus rhythm Right bundle branch block Left anterior fascicular block Bifascicular block Abnormal ECG
--- NOTE | 2018-10-15 18:14 | Discharge Summary ---
Discharge Summary Discharge Summary _ Date of Admission: October 13, 2018. Date of Discharge: October 15, 2018. Discharge Diagnoses: 1. Traumatic head injury with no evidence of hemorrhage or other major sequela. 2. Hypotension with evidence of volume depletion associated with hypercalcemia. 3. Acute kidney injury superimposed on chronic kidney disease stage III. 4. History of dysphagia with patient able to tolerate shop soft diet and nectar thick liquids with plan to titrate to thin liquids. 5. Superficial skin redness multiple locations without skin breakdown. 6. Low iron stores. 7. 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 8. Right hemiparesis with cognitive deficits associated with recent cerebrovascular accident. 9. 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 10. History of malignant pancreatic neuroendocrine tumor with positive nodes status post resection including splenic resection with no follow-up chemotherapy and mild persistent elevation of chromogranin and pancreatic polypeptide suggesting residual disease. Respiratory therapy to include problems 11. Post splenectomy syndrome with thrombocytosis and episodic leukocytosis. 12. Labile diabetes associated with choreatic dissection. 13. Hypertension. 14. Dyslipidemia. 15. Prostatism. 16. Degenerative joint disease. 17. Seizure disorder with rare events not requiring routine antiepileptic therapy. 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 Medications: 1. Acetaminophen 325 mg every 4 hours as needed. 2. Amlodipine 10 mg daily. 3. Baclofen 5 mg twice daily. 4. Clonidine TTS 1 weekly. 5. Cyanocobalamin 1000 mcg IM monthly. 6. Nuedexta 20/10 every 12 hours. 7. Magnesium oxide 400 mg daily. 8. Metoprolol tartrate 25 mg every 12 hours. 9. NovoLog 10 units subcu before meals 3 times a day. 10. Levemir 12 units every 12 hours. 11. Xarelto 20 mg daily. Allergies: NKA. History of Present Illness: Mr. Solares is a 68-year-old gentleman who is been a resident of [facility]. On the day of admission he was noted to have fallen out of bed with significant trauma to his forehead patient was sent to the emergency room because of the fact that he is on Xarelto for acute deep venous thrombosis. In the emergency room he was also found to have evidence of acute kidney injury superimposed on his chronic kidney disease consistent with a prerenal etiology. Patient was admitted for further evaluation and treatment. Hospital Course: Evaluation of the patient's head trauma included a CT scan of the head which showed no evidence of acute hemorrhage and residual of previous focal cerebrovascular accidents, lacunes, and white matter disease. He was observed for further neurologic changes to his course but there was no evidence of a new deficit. On admission patient was noted to have acute kidney injury on top of his chronic kidney disease, with hypercalcemia. The latter may be in part due to paraneoplastic factors associated with his neuroendocrine tumor. In any event the patient was begun on intravenous hydration with correction of his hypercalcemia. On initial presentation there had also been an element of hypotension which again responded to the volume expansion. Patient's diabetes mellitus was adequately controlled on his regimen of insulin including Levemir and prandial NovoLog. Patient had initially been transferred on a pured diet and nectar thick liquids. However he professed profound disappointment with this texture. Swallow study was not done because he was previously decided the patient would not be an appropriate candidate for enteral feedings. He was placed on a chopped soft diet which he tolerated relatively well. A trial of thin liquids was also initiated and it is likely he will be able to tolerate this when supervised adequately. Although the patient clearly has risk for aspiration it is believed that since his quality of life is the primary treatment goal is that this liberalization of his dietary restrictions will be beneficial in that regard, and also improve the consistency of his intake. On admission the patient was noted to have multiple areas of skin erythema there was no subsequent breakdown and appears that these were superficial compromise is associated with his hypotension and volume depleted state. The patient's MCV was borderline and iron stores were found to be on the low side with a normal ferritin. Therefore a dose of Venofer was initiated and further iron supplementation may be appropriate in the future. With the above-mentioned treatments patient appeared to return to his functional baseline with no evidence of discomfort. His situation was discussed both with his surrogate decision maker and son, Kartik Solares, as well as another son Artem at bedside. The family concurred with therapeutic approach as previously discussed, and confirmed the patient's DNR/DNI status and that the goals of therapy were primarily comfort. Patient will be followed up at the assisted facility. Milton Rodriguez MD Oct 15, 2018 18:14
--- NOTE | 2018-10-15 19:30 | NUR ---
NURSE NOTES: Patient alert x oriented to self only, confused, on room air, no sign of distress and no sign of shortness of breath; bed in lowest position, side rails up x2, locked, bed alarm on, call light within reach; will keep monitoring. Received report from Verna. EMS to bring patient back to [facility]. Waiting for them to come. Pt has DC order and is ready for discharge.
--- NOTE | 2018-10-15 19:30 | NUR ---
HAND-OFF: Report given to Keyona CHAU. SNF report given to Mukul CHAU from [facility] for discharge.
[2018-10-15 20:00] VITALS: BP 137/86
--- NOTE | 2018-10-15 21:05 | NUR ---
NURSE NOTES: Pt received by EMS. Returning to [facility]. Pt in stable condition, VS within normal limits. Transferred and under care of EMS. Report at halfway given to Mukul. IV and condom cath removed.
--- NOTE | 2018-10-16 09:30 | NUR ---
*-* CORRECTION ON DISCHARGE DISPOSITION *-* PATIENT WAS DISCHARGED TO: [facility] ROOM# 105-B [facility] SPOKE WITH ADMISSIONS AT [facility].
== END 2018-10-15 21:10 | DRG 914 ==
LOC: EDBD 12:00 → EDUNIT# 12:00 → EMR 12:25 → EDBEDREQ 13:18 → EDBEDREQSVC 14:15 → 4E 14:32 → EDBEDREQ 15:06
DX: S09.90XA Unspecified injury of head, initial encounter (principal); N17.9 Acute kidney failure, unspecified; I69.351 Hemiplegia and hemiparesis following cerebral infarction affecting right dominant side; G40.89 Other seizures; Z79.01 Long term (current) use of anticoagulants; I69.319 Unspecified symptoms and signs involving cognitive functions following cerebral infarction; Z85.07 Personal history of malignant neoplasm of pancreas; I10 Essential (primary) hypertension; E78.5 Hyperlipidemia, unspecified; N40.0 Benign prostatic hyperplasia without lower urinary tract symptoms; M19.90 Unspecified osteoarthritis, unspecified site; I69.391 Dysphagia following cerebral infarction; R13.10 Dysphagia, unspecified; I12.9 Hypertensive chronic kidney disease with stage 1 through stage 4 chronic kidney disease, or unspecified chronic kidney disease; E11.22 Type 2 diabetes mellitus with diabetic chronic kidney disease; N18.3 Chronic kidney disease, stage 3 (moderate); R26.2 Difficulty in walking, not elsewhere classified; Z79.4 Long term (current) use of insulin; I95.9 Hypotension, unspecified; Z22.322 Carrier or suspected carrier of Methicillin resistant Staphylococcus aureus
CPT/HCPCS: 36415; 70450; 71045; 80048; 80053; 81003; 82550; 82553; 82728; 82962; 83540; 83550; 83605; 83735; 83880; 84484; 85025; 87040; 87081; 93005; 96360; 96361; 99291; J1815; S5561